=== PATIENT | male | born 1955 | race Caucasian/White ===

== ENCOUNTER 2016-09-06 17:20 | Inpatient (IN) ==
[2016-09-06] MEDS ORDERED: Ondansetron 4 MG/2 ML VIAL IVP PRN (21:08)
[2016-09-06] MEDS ORDERED: 0.9 % Sodium Chloride 1,000 ML IVC SCH ×2 (21:15→22:14)
[2016-09-06] MEDS ORDERED: *HR* Morphine 2 MG/ML SYRINGE IVP PRN (21:20)
[2016-09-06] MEDS ORDERED: Naloxone 0.4 MG/ML INJ IVP PRN (21:20)
[2016-09-06] MEDS ORDERED: *HR* HYDROmorphone (PF) 1 MG/ML SYRINGE IVP PRN (21:37)
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
[2016-09-06 22:21] LABS: Basophils # 0.1 K/mcL (0.0-0.2); Basophils % 0.3 %; Eosinophils % 0.2 %; Hemoglobin 11.1 g/dL (12.9-16.9); Immature Granulocytes % 0.7 % (0-4); Lymphocytes # 0.6 K/mcL (0.6-4.6); Mean Corpuscular Hemoglobin 22.3 pg (28.0-33.3); Mean Corpuscular Volume 74.4 fL (83.0-100.0); Mean Platelet Volume 9.2 fL (9.4-12.4); Monocytes # 1.2 K/mcL (0.0-1.3); Monocytes % 6.3 %; Neutrophils # 17.1 K/mcL (1.6-8.9); Platelet Count 329 K/mcL (140-400); Red Blood Count 4.97 M/mcL (4.19-5.50); Segmented Neutrophils % 89.5 %
[2016-09-06 22:26] LABS: INR 1.2; Prothrombin Time 13.4 Seconds (9.4-12.1)
[2016-09-06 22:29] LABS: Activated Partial Thrombo Time 31.6 Seconds (26.0-36.0)
[2016-09-06] MEDS: *HR* Enoxaparin 30 MG/0.3 ML SYRINGE SQ SCH (22:33)
[2016-09-06 22:34] LABS: BUN/Creatinine Ratio 21 (6-26); Blood Urea Nitrogen 17 mg/dL (8-26); Calcium 8.9 mg/dL (8.6-10.8); Carbon Dioxide 22 mEq/L (19-29); Chloride 106 mEq/L (98-109); Glucose 150 mg/dL (70-99); Osmolality,Calculated 296 (280-300); Potassium 4.1 mEq/L (3.5-4.5); Sodium 141 mEq/L (136-145); eGFR For African Americans > 60 (> 60); eGFR For Non-African Americans > 60 (> 60)
[2016-09-06] MEDS ORDERED: *HR* Dextrose 50 % in Water (Syg) 50 ML SYRINGE IVP PRN (22:41)
[2016-09-06] MEDS ORDERED: D5% in Water 1,000 ML IVC PRN (22:41)
[2016-09-06] MEDS ORDERED: Dextrose Gel 15 GM PO PRN ×2 (22:41)
[2016-09-07 00:48] LABS: Bilirubin,Urine Small (Negative); Blood,Urine Large (Negative); Clarity,Urine Cloudy (Clear); Color,Urine Dark Yellow (Yellow); Glucose,Urine (UA) Normal (Normal); Ketones,Urine 40 mg/dL (Negative); Leukocyte Esterase,Urine Small (Negative); Nitrite,Urine Negative (Negative); Protein,Urine 100 mg/dL (Neg-Trace); Specific Gravity,Urine 1.023 (1.010-1.025); Urobilinogen,Urine Normal (Normal)
[2016-09-07 00:49] LABS: Bacteria,Urine None Seen per hpf (None-Few); Hyaline Casts,Urine None Seen per lpf (None-Few); RBC,Urine TNTC per hpf (0-3); Squamous Epithelial Cell,Urine Moderate per lpf (None-Few); WBC,Urine 30-50 per hpf (0-3)
[2016-09-07] MEDS ORDERED: Levofloxacin 750 MG/150 ML 750 MG/150 ML BAG IVPB SCH (01:14)
[2016-09-07] MEDS: *HR* HYDROmorphone (PF) 1 MG/ML SYRINGE IVP PRN ×6 (01:19→13:04)
[2016-09-07] MEDS ORDERED: 0.9 % Sodium Chloride 1,000 ML IVC SCH ×2 (01:22→20:22)
[2016-09-07] MEDS: Insulin LISPRO 300 UNITS/3 ML VIAL SQ SCH ×4 (01:24→18:00)
[2016-09-07 01:46] LABS: Basophils # 0.1 K/mcL (0.0-0.2); Basophils % 0.4 %; Eosinophils % 0.1 %; Hematocrit 36.4 % (37.5-50.1); Hemoglobin 10.8 g/dL (12.9-16.9); Immature Granulocytes % 0.7 % (0-4); Immature Platelets 3.7 % (1.1-6.1); Lymphocytes # 0.7 K/mcL (0.6-4.6); Lymphocytes % 3.1 %; Mean Corpuscular HGB Conc 29.7 g/dL (31.6-35.5); Mean Corpuscular Hemoglobin 22.2 pg (28.0-33.3); Mean Corpuscular Volume 74.9 fL (83.0-100.0); Mean Platelet Volume 9.7 fL (9.4-12.4); Monocytes # 0.9 K/mcL (0.0-1.3); Neutrophils # 20.6 K/mcL (1.6-8.9); Platelet Count 353 K/mcL (140-400); Red Blood Count 4.86 M/mcL (4.19-5.50); Red Cell Distribution Width 19.9 % (11.5-14.5); Segmented Neutrophils % 91.7 %
[2016-09-07] MEDS: *HR* Enoxaparin 30 MG/0.3 ML SYRINGE SQ SCH ×2 (05:42→18:00)
[2016-09-07] MEDS ORDERED: Aspirin 325 MG TABLET PO ONE (06:38)
[2016-09-07] MEDS ORDERED: rOPINIRole 1 MG TABLET PO PRN ×3 (06:39→20:22)
[2016-09-07 07:04] LABS: BUN/Creatinine Ratio 19 (6-26); Blood Urea Nitrogen 16 mg/dL (8-26); Calcium 8.9 mg/dL (8.6-10.8); Carbon Dioxide 22 mEq/L (19-29); Chloride 105 mEq/L (98-109); Cholesterol 99 mg/dL (< 200); Glucose 143 mg/dL (70-99); HDL Cholesterol 33 mg/dL (40-59); LDL Cholesterol,Calculated 54 mg/dL (0-99); Magnesium 1.4 mg/dL (1.6-2.6); Osmolality,Calculated 292 (280-300); Sodium 139 mEq/L (136-145); Triglycerides 61 mg/dL (< 150); eGFR For African Americans > 60 (> 60); eGFR For Non-African Americans > 60 (> 60)
[2016-09-07 07:30] LABS: C-Reactive Protein 61 mg/L (Less than 5)
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
[2016-09-07] MEDS ORDERED: Magnesium Sulfate 2 GM in D5% in Water 100 ML IVPB ONE (08:51)
--- NOTE | 2016-09-07 08:59 | Pulmonology Consult Note ---
Date of Encounter: 09/07/16 Time of Encounter: 08:35 Assessment and Plan (1) Preop pulmonary/respiratory exam Current Visit: Yes Status: Acute This is a pleasant 61-year-old male with history of COPD over unknown stage, however I suspect from clinical exam as well as the fact he is on home oxygen at least would be severe stage, but he did not have any COPD exacerbation recently and he has not been hospitalized with fracture left femur that needs to be surgically treated. He had surgeries in the past without complications, however looks likely has community-acquired pneumonia and I feel from a pulmonary standpoint benefit of the surgery outweighed the risks and explained to the patient and also orthopedic team. I would recommend to continue current bronchodilators as well as systemic steroids perioperatively only with antibiotic. I have explained to the patient some of the risks of surgery such as respiratory failure, worsening His pneumonia, hypoxia, and even prolonged mechanical ventilation. If possible regional anesthesia with the less risky than general anesthesia and duration of the surgery less than 3 hours. Postoperatively he will need incentive spirometry and continue bronchodilators with antibiotic. Thank you very much for the consultation and we will follow up postoperatively. (2) Pneumonia Current Visit: Yes Status: Acute This is most likely community-acquired pneumonia patient already has been on antibiotics and I feel Levaquin should be enough with follow up on sputum culture and also check urine for urine strep antigen. Qualifiers: Pneumonia type: due to unspecified organism Laterality: right Lung location: unspecified part of lung Qualified Code(s): J18.9 - Pneumonia, unspecified organism (3) COPD (chronic obstructive pulmonary disease) Current Visit: No Status: Chronic There is no evidence of any exacerbation continue current treatment. He will need outpatient pulmonary function test. Qualifiers: COPD type: unspecified COPD Qualified Code(s): J44.9 - Chronic obstructive pulmonary disease, unspecified (4) Former smoker, stopped smoking many years ago Current Visit: Yes Status: Resolved History of Present Illness Consult date: 09/07/16 Requesting physician: Suzanna Crespo Reason for consult: COPD, other (Preoperative clearance) Chief complaint: Left femur fracture History of present illness: This is very pleasant 61-year-old male with history of COPD on home oxygen and he stated he used it only occasionally and he is COPD stage is unknown. Patient had femur fracture and orthopedic consult pulmonary for perioperative clearance for surgery. Patient denies any previous problems with surgeries. He denies any recent COPD exacerbation and recently he had symptoms of cold like , however on his chest x-ray there is evidence of pneumonia. Patient has some wheezing and sputum production. Patient to use inhalers at home but he does not remember the name. He denies using his rescue treatment a lot. Patient generally is active and he is a former smoker. He denies any hemoptysis and denies any chest pain. He has pain and discomfort at the site of his fracture. He denies any night sweats or significant fever. He has not been on systemic steroids recently and no hospitalizations. Past Med Surg Social Fam HX - Past Medical History Medical history: CHF, COPD, coronary artery disease, hypertension, malignancy, migraine, myocardial infarction, peripheral artery disease Psychiatric history: anxiety, depression - Past Surgical History Surgical History: bariatric surgery, knee replacement, other - Social History Smoking Status: Unknown if ever smoked Smokeless Tobacco Status: No Alcohol use: none Drug use: none - Family History Brother Hx Family Cancer: Yes Father Hx Family Cancer: Yes Medications and Allergies Albuterol Sulfate [Albuterol Inhaler] 2 puff IH Q4HR PRN 12/27/14 [History] Biotin 500 mcg PO DAILY 12/27/14 [History] Calcium Carbonate [Calcium] 1,500 mg PO DAILY 12/27/14 [History] Cyanocobalamin (Vitamin B-12) [Vitamin B-12] 1 tab PO DAILY 12/27/14 [History] Ginseng 1 tab PO DAILY 12/27/14 [History] Multivitamin [Multivitamins] 1 tab PO DAILY 12/27/14 [History] Pregabalin [Lyrica] 200 mg PO BID 12/27/14 [History] TraZODone 50 - 100 mg PO HS PRN 12/27/14 [History] Zolpidem Tartrate [Ambien] 10 mg PO HS 12/27/14 [History] Morphine Sulfate [Ms Contin] 15 mg PO Q8H 01/21/15 [History] Cyanocobalamin (B-12) [Vitamin B12] 1,000 mcg IM QMONTH 03/28/16 [History] Ciprofloxacin HCl [Cipro] 500 mg PO BID 09/07/16 [History] HYDROcodone/Acet 10/325 mg [[place] 10-325 mg] 1 tab PO Q6HR PRN 09/07/16 [History ] Lidocaine [Lidocare] 1 - 3 patch TP Q12H PRN 09/07/16 [History] Sumatriptan [Imitrex] 20 mg NS AD PRN 09/07/16 [History] Allergies pioglitazone [From Actos] Allergy (Unknown, Verified 12/27/14 07:43) UNKNOWN Amoxicillin [From Augmentin] Adverse Reaction (Mild, Verified 12/27/14 07:43) Nausea clavulanic acid [From Augmentin] Adverse Reaction (Mild, Verified 12/27/14 07:43 ) Nausea codeine Adverse Reaction (Mild, Verified 12/27/14 07:43) Hallucinating unknown reaction All Systems: A 10-system review of systems was performed and is negative for pertinent findings except as documented above in the HPI. Physical Examination Vital Signs: Vital Signs, Last 4 Hours Temp Pulse Resp BP Pulse Ox 09/07/16 07:01 98.2 F 99 18 154/79 95 09/07/16 05:14 98.5 F 97 16 142/72 96 General appearance: no acute distress Eyes: nonicteric ENT: oropharynx moist Neck: supple, no lymphadenopathy Effort: normal Inspection: hyperextended Auscultation: left: diminished breath sounds, right: rhonchi Percussion: bilateral: not dull Cardiovascular: regular rate and rhythm Gastrointestinal: normoactive bowel sounds, non-distended Extremities: no cyanosis, no edema Musculoskeletal: other (Left knee is tender) normal mental status, non-focal exam mood appropriate Results - Laboratory Findings CBC and BMP: 09/07/16 01:38 09/07/16 01:38 PT/INR, D-dimer PT 13.4 Seconds (9.4-12.1) H 09/06/16 22:13 Abnormal lab findings: Abnormal lab results WBC 22.5 K/mcL (4.3-11.1) H 09/07/16 01:38 Hgb 10.8 g/dL (12.9-16.9) L 09/07/16 01:38 Hct 36.4 % (37.5-50.1) L 09/07/16 01:38 MCV 74.9 fL (83.0-100.0) L 09/07/16 01:38 MCH 22.2 pg (28.0-33.3) L 09/07/16 01:38 MCHC 29.7 g/dL (31.6-35.5) L 09/07/16 01:38 RDW 19.9 % (11.5-14.5) H 09/07/16 01:38 Neutrophils # 20.6 K/mcL (1.6-8.9) H 09/07/16 01:38 PT 13.4 Seconds (9.4-12.1) H 09/06/16 22:13 Glucose 143 mg/dL (70-99) H 09/07/16 01:38 POC Glucose 140 (58-89) H 09/07/16 05:05 Magnesium 1.4 mg/dL (1.6-2.6) L 09/07/16 01:38 Troponin I 0.07 ng/mL (0-0.03) H* 09/07/16 01:38 C-Reactive Protein 61 mg/L (Less than 5) H 09/07/16 01:38 HDL Cholesterol 33 mg/dL (40-59) L 09/07/16 01:38 Urine Clarity Cloudy (Clear) A 09/07/16 00:30 Urine Protein 100 mg/dL (Neg-Trace) H 09/07/16 00:30 Urine Ketones 40 mg/dL (Negative) H 09/07/16 00:30 Urine Blood Large (Negative) H 09/07/16 00:30 Urine Bilirubin Small (Negative) H 09/07/16 00:30 Ur Leukocyte Esterase Small (Negative) H 09/07/16 00:30 Urine Microscopic RBC TNTC per hpf (0-3) H 09/07/16 00:30 Urine Microscopic WBC 30-50 per hpf (0-3) H 09/07/16 00:30 Ur Squamous Epith Cells Moderate per lpf (None-Few) H 09/07/16 00:30 Ur Culture Indicated? YES (NO) A 09/07/16 00:30 - Diagnostic Findings CT scan - chest: report reviewed, image reviewed - Clinical Findings Intake & Output: Intake & Output 09/06/16 09/07/16 09/07/16 23:59 07:59 15:59 Intake Total 0 / 0 200 / 200 Output Total 300 / 300 550 / 550 Balance -300 / -300 -350 / -350 Weight 83.461 kg 83.461 kg Consult Discharge Plan - Plan Referrals: Darrin Cobos, DESKTOP SPECIALIST [Primary Care Provider] -
[2016-09-07] MEDS ORDERED: BIOTIN 500 MCG PO SCH (09:00)
[2016-09-07] MEDS ORDERED: Metoprolol XL (24 HR) Succ 25 MG TAB.ER.24H PO SCH (09:00)
[2016-09-07] MEDS ORDERED: Vancomycin 1,250 MG in D5% in Water 250 ML IVPB SCH ×2 (09:00→23:00)
[2016-09-07] MEDS ORDERED: Tiotropium 18 MCG inhalation IH SCH (09:00)
[2016-09-07] MEDS ORDERED: Cyanocobalamin (B-12) 1,000 MCG/ML VIAL IM SCH ×2 (09:00)
[2016-09-07] MEDS ORDERED: Multivit/Ca/Min/Fe/FA 1 TAB TABLET PO SCH (09:00)
[2016-09-07] MEDS ORDERED: Pregabalin 50 MG CAPSULE PO SCH (09:00)
[2016-09-07] MEDS ORDERED: Cyanocobalamin (B-12) 1,000 MCG TABLET PO SCH (09:00)
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
[2016-09-07] MEDS ORDERED: Vancomycin 1,750 MG in D5% in Water 500 ML IVPB ONE (10:25)
--- NOTE | 2016-09-07 12:09 | Anesthesia Evaluation PreOp ---
Date of Encounter: 09/07/16 Time of Encounter: 12:06 - Past History Planned Operation: Left Distal Femoral Component Replacement Cardiac History: [place], CHF, HTN, Other (elevated troponin- Cardiology consult, likely demand ischemia) Pulmonary History: Former smoker (quit 12 years ago, smoked for 33 years), COPD (on O2 prn), Other (pneumonia) [employer] History: Other (Marfan's, chronic back pain) Other Medical History: Other (pancreatic CA S/P Whipple, anxiety/depression) Anesthesia History: No Prior Anesthetic Complications, Past Anesthesia Alcohol Use: none Drug use: none Medications and Allergies Albuterol Sulfate [Albuterol Inhaler] 2 puff IH Q4HR PRN 12/27/14 [History] Biotin 500 mcg PO DAILY 12/27/14 [History] Calcium Carbonate [Calcium] 1,500 mg PO DAILY 12/27/14 [History] Cyanocobalamin (Vitamin B-12) [Vitamin B-12] 1 tab PO DAILY 12/27/14 [History] Ginseng 1 tab PO DAILY 12/27/14 [History] Multivitamin [Multivitamins] 1 tab PO DAILY 12/27/14 [History] Pregabalin [Lyrica] 200 mg PO BID 12/27/14 [History] TraZODone 50 - 100 mg PO HS PRN 12/27/14 [History] Zolpidem Tartrate [Ambien] 10 mg PO HS 12/27/14 [History] Morphine Sulfate [Ms Contin] 15 mg PO Q8H 01/21/15 [History] Cyanocobalamin (B-12) [Vitamin B12] 1,000 mcg IM QMONTH 03/28/16 [History] Ciprofloxacin HCl [Cipro] 500 mg PO BID 09/07/16 [History] HYDROcodone/Acet 10/325 mg [[place] 10-325 mg] 1 tab PO Q6HR PRN 09/07/16 [History ] Lidocaine [Lidocare] 1 - 3 patch TP Q12H PRN 09/07/16 [History] Sumatriptan [Imitrex] 20 mg NS AD PRN 09/07/16 [History] Allergies pioglitazone [From Actos] Allergy (Unknown, Verified 12/27/14 07:43) UNKNOWN Amoxicillin [From Augmentin] Adverse Reaction (Mild, Verified 12/27/14 07:43) Nausea clavulanic acid [From Augmentin] Adverse Reaction (Mild, Verified 12/27/14 07:43 ) Nausea codeine Adverse Reaction (Mild, Verified 12/27/14 07:43) Hallucinating unknown reaction - Meds/Allergy Pre-op Review Medications Reviewed: Yes Allergies Reviewed: Yes Beta Blockers on Current Med List: Yes If Beta Blockers taken, Date/Time (Last Dose taken): 09/07/2016 at 1053 Anesthesia Results - Labs 09/07/16 01:38 09/07/16 01:38 Laboratory Tests 09/06/16 22:13 PT 13.4 H INR 1.2 APTT 31.6 - Imaging EKG: report reviewed (09/06/2016 ST, moderate ST depression) Chest x-ray: report reviewed (Large area of consolidation in the right mid lung zone, which could represent pneumonia in the proper clinical setting.) Additional studies: 09/07/2016 Echo LVEF 55% normal LV chamber size, wall thickness and function mild LV diastolic dysfunction atypical septal motion of unclear etiology normal RV structure and function no evidence of pulmonary HTN no significant valvular dysfunction 12/08/2014 Echo Impressions: Technically sub-optimal due to limited echocardiographic windows. Mildly dilated left ventricle. Mild left ventricular systolic dysfunction, LVEF 45-50%. There is mild global hypokinesis. Moderate left ventricular diastolic dysfunction. Mildly dilated right ventricle with normal systolic function. Moderately dilated left atrium. No significant valvular dysfunction. Unable to estimate RVSP due to inadequate TR jet. Aortic root was not well visualized. Grossly appears normal in size. Anesthesia Exam Vital Signs/O2 Sat/Glucose, Most Recent Temp Pulse Resp BP Pulse Ox 98.0 F 98 18 147/81 95 09/07/16 11:11 09/07/16 11:11 09/07/16 11:11 09/07/16 11:11 09/07/16 11:11 Blood Glucose* 120 Height: 5'9''/1.75 m Weight: 184 lbs/83.461 kg NPO (# of Hours): 8 Pain Scale: 10 Pain Scale Used: Numeric (1 - 10) - HEENT Pupil (Motor): EOMI Mallampati: II Teeth: Normal, Missing Oral Opening: Greater than 3 - [employer] LOC: Oriented [employer] Motor: Normal RUE, Normal LUE, Normal RLE, Normal Face, Deficit LLE [employer] Sensory: Normal: RUE, LUE, RLE, LLE, Face - Cardiac Rhythm: Regular Murmur: None - Pulmonary Breath Sounds: bilateral Clear Respiratory Effort: Symmetrical Anesthesia Assess/Plan ASA Score: 4 Modified [place] Scale for Level of Consciousness: Cooperative, oriented, and tranquil Anesthetic Plan: General, Regional (femoral nerve block), Precautions (Patient understands that he is at increased risk for perioperative complications including myocardial infarct, arrhythmias, CVA, post op vent support/ICU stay, and . Patient wishes to proceed.) Monitoring Plan: Standard Monitors
--- NOTE | 2016-09-07 12:41 | Electrocardiograph Report ---
[place] [id number] Test Date: 2016-09-06 Pat Name: Eduar Hooper Department: 115 Room: 3A Gender: M Delivery Person: [id number] : 1955 Requested By: Mer Starr Order Number: [id number] Reading MD: Yoly Christie Measurements Intervals [place] Rate: 122 P: 79 MS: 128 QRS: 77 QRSD: 92 T: 72 QT: 315 QTc: 387 Interpretive Statements SINUS TACHYCARDIA ABNORMAL RHYTHM ECG Electronically Signed On 09-07-2016 12:40:01 EDT by Yoly Christie
--- NOTE | 2016-09-07 13:07 | ECHO - Doppler Report ---
Echocardiogram Name: Eduar Hooper Date of Study: 09/07/2016 Date: 1955 Ht: 69.0 in Medical Record#: [id number] Age: 61 Wt: 184.0 lb Gender: Male BSA: 1.99 Order #: [id number] Location: [facility] Room #: 3A55 Reading Physician: Charlie Cummings DO, [facility], JELENA Automatic Equipment Technician: Satinder Saenz RDCS Ordering Physician: Macario Jay MD, [facility] Primary Physician: Darrin Cobos CNP Indications: Preoperative exam, Shortness of breath, Elevated troponin Impressions: LVEF 55%. Normal LV chamber size, wall thickness and function. Mild left ventricular diastolic dysfunction. Atypical septal motion of unclear etiology. Normal right ventricular structure and function. No evidence of pulmonary hypertension. No significant valvular dysfunction. Left Ventricular Wall Motion: Rest Echo Findings All wall segments showed normal motion. Findings: Study Quality * Technically sub-optimal due to clinical status. ECG Findings * Normal sinus rhythm. Left Ventricle * LVEF 55%. * Normal LV chamber size, wall thickness and function. * Mild left ventricular diastolic dysfunction. * Atypical septal motion of unclear etiology. Right Ventricle * Normal right ventricular structure and function. Left Atrium * Mildly dilated left atrium. Right Atrium * Normal right atrial size. Interatrial Septum * No evidence of PFO by color Doppler. Aortic Valve * Trileaflet aortic valve with normal function. * No aortic regurgitation. * No aortic stenosis. Mitral Valve * Normal mitral valve structure and function. * No mitral regurgitation. * No mitral stenosis. Tricuspid Valve * Normal tricuspid valve structure and function. * Trace tricuspid regurgitation. * No evidence of pulmonary hypertension. Pulmonic Valve * Normal pulmonic valve structure and function. * No pulmonic regurgitation. Aorta * Normally sized aortic root. Pericardium * The pericardium appears normal. IVC * Normal IVC dimensions and inspiratory collapse. Pulmonary Artery * Normal visualized portions of the main pulmonary artery. History 12/08/14 a Previous Echo was performed. Measurements: BP: 147/ 81 2D Normal Values RVIDd: 3.73 cm <2.7 cm IVSd: 1.05 cm 0.6 - 1.0 cm LVIDd: 5.50 cm 3.7 - 5.6 cm LVPWd: 1.17 cm 0.6 - 1.1 cm LVIDs: 4.53 cm 1.5 - 3.6 cm AO: 2.70 cm < 4.0 cm LA: 2.70 cm 2.0 - 4.0cm %FS: 23.60 cm >25 % LA volume: 74 Mitral Valve Peak E:.55 m/sec Peak A:.55 m/sec E/A Ratio:1 Peak E' Lat Xavier:7.29 cm/s Peak E' Med Xavier:9.25 cm/s E/E' Lat Ratio:7.6 E/E' Med Ratio:6 Tricuspid Valve TV Regurg Peak Grad: 20.00mmHg TV Regurg Peak Xavier: 2.21m/sec Updated by Charlie Cummings DO, FACRochelle, JELENA, STACY on 09/07/2016 1:01:54 PM electronically signed on 09/07/2016 1:02:53 PM with status of Final Wall Motion Conner: 1=Normal, 2=Hypokinesis, 3=Akinesis, 4=Dyskinesis, 5=Aneurysmal, 6=Hyperkinetic, X=Not Visualized (Blank)=Missing
[2016-09-07] MEDS ORDERED: *HR* FentaNYL (PF) 100 MCG/2 ML VIAL ONE ×2 (15:10→16:37)
[2016-09-07] MEDS ORDERED: *HR* Propofol 200 MG/20 ML VIAL IVP ONE (15:11)
[2016-09-07] MEDS ORDERED: *HR* Midazolam HCl 2 MG/2 ML VIAL ONE (15:11)
[2016-09-07] MEDS ORDERED: Lidocaine -MPF 2% 2 ML VIAL ONE (15:11)
[2016-09-07] MEDS ORDERED: ROPIVACAINE HCL/PF 0.5% 30 ML VIAL ONE (15:23)
--- NOTE | 2016-09-07 15:55 | Anesthesia Procedures ---
Date of Encounter: 09/07/16 Time of Encounter: 15:50 Procedures: Anesthesia - Nerve Block Procedure Date: 09/07/16 Time: 15:50 Allergies/Adv Reactions: Allergies Allergy/AdvReac Type Severity Reaction Status Date / Time pioglitazone [From Actos] Allergy Unknown UNKNOWN Verified 12/27/14 07:43 Amoxicillin [From Augmentin] AdvReac Mild Nausea Verified 12/27/14 07:43 clavulanic acid AdvReac Mild Nausea Verified 12/27/14 07:43 [From Augmentin] codeine AdvReac Mild Hallucinati Verified 12/27/14 07:43 ng Pre-op Diagnosis: Left distal femur fracture Surgical Procedure: Left distal femur replacement Checklist: Correct Patient Identifier, Correct procedure, History checked Correct side: Left Blood Thinner: No Monitor Applied: EKG, BP, Pulse Oximetry Supplemental Oxygen via Nasal Cannula (L/min): 4 Sedation: Versed (mg): 2 Sedation: Fentanyl (mcg): 100 Indication: Post Op Analgesia Pre-op Neuro Deficits: No Block Type: Femoral Catheter placed: No Sterile Technique: Yes Ultrasound used: Yes Anatomy identified: Yes Visual spread of Local: Yes Blood on Needle Aspiration: No Smooth Injection of Local: Yes Pain with Injection of Local: No Prep: Chlorhexadine Needle: 22 x 50 mm Stimuplex Local: Ropivacaine (0.5%) Volume (cc): 30 Number of Attempts: 1 Complications: None/effective block Vitals: VSS throughout procedure. See nursing documentation. Comments: Patient tolerated well. Verbal order Dr Child for post op pain management.
[2016-09-07 16:14] LABS: Adenovirus Not Detected (Not Detect); Bordetella Pertussis Not Detected (Not Detect); Chlamydophila pneumoniae Not Detected (Not Detect); Coronavirus 229E Not Detected (Not Detect); Coronavirus HKU1 Not Detected (Not Detect); Coronavirus NL63 Not Detected (Not Detect); Coronavirus OC43 Not Detected (Not Detect); Human Metapneumovirus Not Detected (Not Detect); Human Rhinovirus/Enterovirus ***DETECTED*** (Not Detect); Influenza A Subtype 2009 H1 Not Detected (Not Detect); Influenza A Untypeable Not Detected (Not Detect); Influenza B Not Detected (Not Detect); Mycoplasma pneumoniae Not Detected (Not Detect); Parainfluenza Virus 1 Not Detected (Not Detect); Parainfluenza Virus 2 Not Detected (Not Detect); Parainfluenza Virus 3 Not Detected (Not Detect); Parainfluenza Virus 4 Not Detected (Not Detect); Respiratory Syncytial Virus Not Detected (Not Detect)
[2016-09-07] MEDS ORDERED: ceFAZolin 1,000 MG in D5% in Water (Mini-Bag+) 100 ML IVPB ONE (16:23)
[2016-09-07] MEDS ORDERED: *HR* HYDROmorphone 2 MG/ML SYRINGE ONE (16:31)
[2016-09-07] MEDS ORDERED: Dexamethasone 4 MG/ML VIAL ONE (16:36)
--- NOTE | 2016-09-07 16:36 | Internal Med Progress Note ---
Date of Encounter: 09/07/16 Time of Encounter: 16:34 - Assessment and plan (1) Closed left femoral fracture Current Visit: Yes Status: Acute Assessment and plan: or as per ortho. Qualifiers: Encounter type: initial encounter Femur location: distal Fracture morphology: unspecified fracture morphology Qualified Code(s): S72.402A - Unspecified fracture of lower end of left femur, initial encounter for closed fracture (2) DVT prophylaxis Current Visit: Yes Status: Acute Assessment and plan: as per hospital protocol. (3) Pneumonia Current Visit: Yes Status: Acute Assessment and plan: leukocytosis, x ray noted, continue with iv levaquin, follow cultures. Qualifiers: Pneumonia type: due to unspecified organism Laterality: right Lung location: unspecified part of lung Qualified Code(s): J18.9 - Pneumonia, unspecified organism (4) UTI (urinary tract infection) Current Visit: Yes Status: Suspected Assessment and plan: history of uti, sensitive to vancomycin according to prior cultures, will give vancomycin and adjust therapy based on cultures.monitor vanc levels. avoid nephrotoxic agents. Qualifiers: Urinary tract infection type: site unspecified Hematuria presence: without hematuria Qualified Code(s): N39.0 - Urinary tract infection, site not specified (5) Elevated troponin Current Visit: Yes Status: Acute Assessment and plan: evaluated by cardiology, echo noted, no interventions. - Subjective Interval history: 1st encounter with the patient. complaining of productive cough, had fever prior to arrival. former smoker, alert and oriented. - Constitutional Vitals: Temp Pulse Resp BP Pulse Ox 98.0 F 98 18 147/81 95 09/07/16 11:11 09/07/16 11:11 09/07/16 11:11 09/07/16 11:11 09/07/16 11:11 General appearance: Present: A&O X 2 - Head Head exam: Present: atraumatic, normocephalic - Eye Eye exam: Present: PERRL, conjuntiva pink, sclera anicteric Pupils: Present: PERRL - Neck Neck exam general surgery: Present: supple, trachea midline. Absent: lymphadenopathy - Respiratory Respiratory exam: Present: decreased breath sounds, rhonchi. Absent: accessory muscle use, rales, wheezes - Cardiovascular Cardiovascular exam: Present: RRR, +S1, +S2. Absent: diastolic murmur, gallop, rubs, systolic murmur - GI/Abdominal GI/Abdominal exam: Present: normal bowel sounds, soft, no peritoneal signs. Absent: distended, tenderness - Extremities Exam Extremities exam: Present: warm, radial pulses palpable and symetrical. Absent : calf tenderness, cyanotic, pedal edema - Neurological Exam Neurological exam: Present: CN II-XII intact, oriented X3, no focal deficits. Absent: pronater drift, facial droop, speech deficit - Skin Skin exam: Present: dry, intact Internal Medicine: Result - Labs CBC & Chem 7: 09/07/16 01:38 09/07/16 01:38 Labs: Short CBC 09/06/16 09/07/16 Range/Units 22:13 01:38 WBC 19.0 H 22.5 H (4.3-11.1) K/mcL Hgb 11.1 L 10.8 L (12.9-16.9) g/dL Hct 37.0 L 36.4 L (37.5-50.1) % Plt Count 329 353 (140-400) K/mcL Neutrophils # 17.1 H 20.6 H (1.6-8.9) K/mcL BMP 09/06/16 09/07/16 22:13 01:38 Sodium 141 139 Potassium 4.1 4.0 Chloride 106 105 Carbon Dioxide 22 22 BUN 17 16 Creatinine 0.82 0.83 Glucose 150 H 143 H Calcium 8.9 8.9 Cardiac Enzymes 09/06/16 09/07/16 Range/Units 22:13 01:38 Troponin I 0.04 H* 0.07 H* (0-0.03) ng/mL Urine 09/07/16 Range/Units 00:30 Urine Color Dark Yellow (Yellow) Urine Clarity Cloudy A (Clear) Urine pH 6.0 (5.0-8.0) pH Units Ur Specific [place] 1.023 (1.010-1.025) Urine Protein 100 H (Neg-Trace) mg/dL Urine Glucose (UA) Normal (Normal) mg/dL - ABG Interpretation ABG results: PT/INR, D-dimer PT 13.4 Seconds (9.4-12.1) H 09/06/16 22:13 - Impressions Impressions Chest X-Ray 09/07/16 00:04 IMPRESSION: Large area of consolidation in the right mid lung zone, which could represent pneumonia in the proper clinical setting. However close radiologic follow-up is recommended to ensure resolution. D/ / Claude De Los Santos MD / Claude De Los Santos MD Interpreting Provider: Claude De Los Santos MD Knee CT 09/07/16 06:44 IMPRESSION: 1. Acute traumatic periprosthetic distal femur fracture. D/ / 09/07/2016 08:37:20 Johnson Villa MD / soha Interpreting Provider: Johnson Villa MD Consult Discharge Plan - Plan Referrals: Darrin Cobos, RECORD RETRIEVAL SPECIALIST [Primary Care Provider] -
[2016-09-07] MEDS ORDERED: *HR* Labetalol 100 MG/20 ML MDV IVP PRN (17:07)
[2016-09-07] MEDS ORDERED: Ondansetron 4 MG/2 ML VIAL IVP ONE (17:07)
[2016-09-07] MEDS ORDERED: *HR* HYDROmorphone (PF) 1 MG/ML SYRINGE IVP PRN (17:07)
[2016-09-07] MEDS ORDERED: Dexamethasone 4 MG/ML VIAL IVP ONE (17:07)
--- NOTE | 2016-09-07 17:21 | Electrocardiograph Report ---
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
--- NOTE | 2016-09-07 17:35 | Orthopedic Operative Note ---
Date of procedure: 09/07/16 Pre-op diagnosis: Displaced comminuted periprosthetic left distal femur fracture Post-op diagnosis: same Procedure: Procedure: Revision total knee replacement to distal femoral replacement left Estimated blood loss: 1000 mL Hardware: Biomet distal femoral replacement 7 femur 3 cm segment 19.5 150 stem, 71x 160 tibia 16mm Alejandra Auxiliary components tibial bushing axle femoral bushings lock pin Findings: Severely comminuted distal femoral fracture exiting around the distal femoral replacement. Dictation of procedure: Patient brought to the operating placed on the operating table after general anesthesia was administered the left lower extremity was prepped and draped in the sterile surgical fashion the patient received IV antibiotics prior to incision. A longitudinal incision was made incorporating the old incision centered over the patella. The incision was made through the skin and subcutaneous tissue hemostasis was obtained with Bovie cautery. Using careful sharp dissection the extensor mechanism was identified. A medial parapatellar approach was performed. The Alejandra was removed. Patient had extensive comminution with multiple large fragments. The distal femoral component with the attached bone was carefully dissected free from its soft tissue structures and removed. The tibial component was removed utilizing an osteotome and oscillating saw and then malleted out. The tibial component was removed without significant bone loss. The tibia was prepared first was reamed for 160 stem stem. The tibia was sized to a 71 This was a monoblock construct had good fit and fixation. Attention was then turned to the femur. The femoral shaft was transected to get a fresh bony cut. A cut that was even as well. The femur was reamed up to a size 20 x 150 A 19 trial stem was impacted in place and the segment was dialed to 3 cm segment With the 16 mm trial Alejandra elected. Full flexion full extension no instability, good patella tracking. All trial components were removed. The knee sat for 2 minutes with a Betadine saline solution while components were assembled on the back table. The monoblock tibia cemented first and impacted in place. The femoral component once assembled was impacted in place in the appropriate orientation. The tibial bushing the femoral bushings were locked in place the axle was used to articulate the tibial and femoral components and this was secured with the locking pin. Knee was taken through a range of motion and excellent patella tracking. The wound was irrigated with pulse irrigation. The extensor mechanism was closed with a running #2 PDS suture. The deep tissue was irrigated and closed with #2 PDS suture superficially with 0 PDS suture skin was closed with skin nam. Patient placed in a sterile dressing postoperative brace extubated transferred to recovery room in stable condition. Anesthesia: COLBY Surgeon: Jacob Child Battery Installer: Faith Ng Condition: stable Disposition: PACU
[2016-09-07 17:46] LABS: Hematocrit 33.5 % (37.5-50.1)
[2016-09-07] MEDS ORDERED: Ringers Solution, Lactated 1,000 ML ONE (18:25)
[2016-09-07 18:41] LABS: Hematocrit 30.2 % (37.5-50.1); Hemoglobin 8.8 g/dL (12.9-16.9)
--- NOTE | 2016-09-07 18:53 | Anesthesia Evaluation Post Op ---
Date of Encounter: 09/07/16 Time of Encounter: 18:52 - Vital Signs Vital Signs: Vital Signs/O2 Sat, Most Current Temp Pulse Resp BP Pulse Ox 99.7 F H 93 18 118/67 93 09/07/16 18:48 09/07/16 18:48 09/07/16 18:48 09/07/16 18:48 09/07/16 18:48 - Lungs Lungs: Clear Ascult./Percussion - Airway Airway: Non-obstructed - Cardiovascular Regular Rate - Mental Status Mental Status: Alert & Oriented, Answers Appropriately - Pain Pain Scale: 3 Pain Scale used: Numeric (1 - 10) - Nausea Vomiting Nausea Vomiting: Not Present - Hydration Hydration: Ice chips, Mccracken catheter - Discharge PostOp Status: Transfer Patient to floor
[2016-09-07] MEDS ORDERED: *HR* OxyCODONE Immed Rel 5 MG TABLET PO PRN (20:22)
[2016-09-07] MEDS ORDERED: D5% in Water 1,000 ML IVC PRN (20:22)
[2016-09-07] MEDS ORDERED: Naloxone 0.4 MG/ML INJ IVP PRN (20:22)
[2016-09-07] MEDS ORDERED: Sennosides 8.6 MG TABLET PO PRN (20:22)
[2016-09-07] MEDS ORDERED: Dextrose Gel 15 GM PO PRN ×2 (20:22)
[2016-09-07] MEDS ORDERED: MOM Conc 10 ML UD.LIQ PO PRN (20:22)
[2016-09-07] MEDS ORDERED: Temazepam 15 MG CAPSULE PO PRN (20:22)
[2016-09-07] MEDS ORDERED: *HR* Dextrose 50 % in Water (Syg) 50 ML SYRINGE IVP PRN (20:22)
[2016-09-07] MEDS: *HR* HYDROmorphone 2 MG/ML SYRINGE IVP PRN (20:48)
[2016-09-07] MEDS ORDERED: traZODone 50 MG TABLET PO SCH (21:00)
[2016-09-07] MEDS: traZODone 50 MG TABLET PO SCH (21:42)
[2016-09-07] MEDS: Pregabalin 50 MG CAPSULE PO SCH (21:42)
[2016-09-07] MEDS: *HR* OxyCODONE Immed Rel 5 MG TABLET PO PRN (21:43)
[2016-09-08] MEDS ORDERED: Insulin LISPRO 300 UNITS/3 ML VIAL SQ SCH
[2016-09-08] MEDS ORDERED: Dextrose Gel 15 GM PO PRN (00:17)
[2016-09-08] MEDS ORDERED: D5% in Water 1,000 ML IVC PRN (00:17)
[2016-09-08] MEDS: Levofloxacin 750 MG/150 ML 750 MG/150 ML BAG IVPB SCH (00:34)
[2016-09-08] MEDS: Vancomycin 1,250 MG in D5% in Water 250 ML IVPB SCH ×2 (00:34→14:49)
[2016-09-08] MEDS: *HR* Morphine Sulfate SR (12 HR) 15 MG TABLET.ER PO SCH ×3 (00:35→16:17)
[2016-09-08] MEDS ORDERED: Levofloxacin 750 MG/150 ML 750 MG/150 ML BAG IVPB SCH (02:00)
[2016-09-08] MEDS: *HR* Enoxaparin 30 MG/0.3 ML SYRINGE SQ SCH ×2 (04:43→16:56)
[2016-09-08] MEDS: *HR* OxyCODONE Immed Rel 5 MG TABLET PO PRN ×4 (06:06→21:40)
[2016-09-08 06:51] LABS: Hematocrit 28.1 % (37.5-50.1); Hemoglobin 8.3 g/dL (12.9-16.9)
[2016-09-08] MEDS ORDERED: Furosemide 20 MG/2 ML VIAL IVP PRN (07:16)
[2016-09-08] MEDS ORDERED: 0.9 % Sodium Chloride 250 ML IVC SCH (07:30)
[2016-09-08] MEDS: Metoprolol XL (24 HR) Succ 25 MG TAB.ER.24H PO SCH (08:38)
[2016-09-08] MEDS: Multivit/Ca/Min/Fe/FA 1 TAB TABLET PO SCH (08:39)
[2016-09-08] MEDS: Pregabalin 50 MG CAPSULE PO SCH ×2 (08:39→21:40)
[2016-09-08] MEDS: Cyanocobalamin (B-12) 1,000 MCG TABLET PO SCH (08:39)
[2016-09-08] MEDS ORDERED: BIOTIN 500 MCG PO SCH (09:00)
[2016-09-08] MEDS ORDERED: Tiotropium 18 MCG inhalation IH SCH (09:00)
[2016-09-08 09:01] LABS: Basophils % 0.1 %; Hematocrit 27.9 % (37.5-50.1); Hemoglobin 8.3 g/dL (12.9-16.9); Immature Granulocytes % 0.8 % (0-4); Lymphocytes % 4.7 %; Mean Corpuscular HGB Conc 29.7 g/dL (31.6-35.5); Mean Corpuscular Hemoglobin 22.5 pg (28.0-33.3); Mean Corpuscular Volume 75.6 fL (83.0-100.0); Mean Platelet Volume 9.6 fL (9.4-12.4); Monocytes # 1.8 K/mcL (0.0-1.3); Monocytes % 8.4 %; Neutrophils # 18.5 K/mcL (1.6-8.9); Platelet Count 300 K/mcL (140-400); Red Blood Count 3.69 M/mcL (4.19-5.50); Red Cell Distribution Width 19.8 % (11.5-14.5)
[2016-09-08 09:15] LABS: Alanine Aminotransferase 12 Units/L (0-55); Albumin 2.2 g/dL (3.5-5.0); Albumin/Globulin Ratio 0.7 (1.1-2.2); Alkaline Phosphatase 70 Units/L (38-126); Aspartate Amino Transferase 12 Units/L (5-34); BUN/Creatinine Ratio 25 (6-26); Bilirubin,Total 0.2 mg/dL (0.2-1.2); Blood Urea Nitrogen 22 mg/dL (8-26); Calcium 8.2 mg/dL (8.6-10.8); Carbon Dioxide 30 mEq/L (19-29); Chloride 103 mEq/L (98-109); Globulin 3.2 g/dL (2.4-3.5); Glucose 142 mg/dL (70-99); Magnesium 1.6 mg/dL (1.6-2.6); Osmolality,Calculated 292 (280-300); Phosphorous 2.1 mg/dL (2.3-4.7); Potassium 4.4 mEq/L (3.5-4.5); Sodium 138 mEq/L (136-145); Total Protein 5.4 g/dL (6.0-8.3); eGFR For African Americans > 60 (> 60); eGFR For Non-African Americans > 60 (> 60)
[2016-09-08] MEDS: Insulin LISPRO 300 UNITS/3 ML VIAL SQ SCH ×4 (09:18→21:48)
--- NOTE | 2016-09-08 10:37 | Pulmonology Progress Note ---
Date of Encounter: 09/08/16 Time of Encounter: 09:45 Assessment and Plan (1) Preop pulmonary/respiratory exam Current Visit: Yes Status: Acute (2) Pneumonia Current Visit: Yes Status: Acute Continue current antibiotics and follow up on the cultures. Qualifiers: Pneumonia type: due to unspecified organism Laterality: right Lung location: unspecified part of lung Qualified Code(s): J18.9 - Pneumonia, unspecified organism (3) COPD (chronic obstructive pulmonary disease) Current Visit: No Status: Chronic Patient postoperatively and continue current bronchodilators as well as encouraged incentive spirometry. Thank you for the consultation and please call for any questions Qualifiers: COPD type: unspecified COPD Qualified Code(s): J44.9 - Chronic obstructive pulmonary disease, unspecified (4) Former smoker, stopped smoking many years ago Current Visit: Yes Status: Resolved Subjective Principal diagnosis: Fracture Femur Interval history: Patient had his surgery and was extubated not needing any invasive mechanical ventilation post operatively. He is coughing up more sputum now. Denies any wheezing and his breathing is stable. Objective PUL Vital signs: Last Vital Signs Temp 98.2 F 09/08/16 06:50 Pulse 91 09/08/16 06:50 Resp 16 09/08/16 08:08 BP 102/59 09/08/16 06:50 Pulse Ox 96 09/08/16 08:08 General appearance: no acute distress Eyes: nonicteric Neck: supple Effort: normal Auscultation: left: diminished breath sounds, right: rhonchi Percussion: bilateral: not dull Cardiovascular: regular rate and rhythm Gastrointestinal: normoactive bowel sounds, non-distended Extremities: no cyanosis, edema (Left side) Musculoskeletal: other (Left post surgery) normal mental status, non-focal exam mood appropriate Results - Laboratory Findings CBC and BMP: 09/08/16 08:52 09/08/16 08:52 PT/INR, D-dimer PT 13.4 Seconds (9.4-12.1) H 09/06/16 22:13 Abnormal lab findings: Abnormal lab results WBC 21.5 K/mcL (4.3-11.1) H 09/08/16 08:52 RBC 3.69 M/mcL (4.19-5.50) L 09/08/16 08:52 Hgb 8.3 g/dL (12.9-16.9) L 09/08/16 08:52 Hct 27.9 % (37.5-50.1) L 09/08/16 08:52 MCV 75.6 fL (83.0-100.0) L 09/08/16 08:52 MCH 22.5 pg (28.0-33.3) L 09/08/16 08:52 MCHC 29.7 g/dL (31.6-35.5) L 09/08/16 08:52 RDW 19.8 % (11.5-14.5) H 09/08/16 08:52 Neutrophils # 18.5 K/mcL (1.6-8.9) H 09/08/16 08:52 Monocytes # 1.8 K/mcL (0.0-1.3) H 09/08/16 08:52 PT 13.4 Seconds (9.4-12.1) H 09/06/16 22:13 Carbon Dioxide 30 mEq/L (19-29) H 09/08/16 08:52 Glucose 142 mg/dL (70-99) H 09/08/16 08:52 POC Glucose 154 (58-89) H 09/08/16 08:34 Calcium 8.2 mg/dL (8.6-10.8) L 09/08/16 08:52 Phosphorus 2.1 mg/dL (2.3-4.7) L 09/08/16 08:52 Troponin I 0.07 ng/mL (0-0.03) H* 09/07/16 01:38 C-Reactive Protein 61 mg/L (Less than 5) H 09/07/16 01:38 Serum Total Protein 5.4 g/dL (6.0-8.3) L 09/08/16 08:52 Albumin 2.2 g/dL (3.5-5.0) L 09/08/16 08:52 Albumin/Globulin Ratio 0.7 (1.1-2.2) L 09/08/16 08:52 HDL Cholesterol 33 mg/dL (40-59) L 09/07/16 01:38 Urine Clarity Cloudy (Clear) A 09/07/16 00:30 Urine Protein 100 mg/dL (Neg-Trace) H 09/07/16 00:30 Urine Ketones 40 mg/dL (Negative) H 09/07/16 00:30 Urine Blood Large (Negative) H 09/07/16 00:30 Urine Bilirubin Small (Negative) H 09/07/16 00:30 Ur Leukocyte Esterase Small (Negative) H 09/07/16 00:30 Urine Microscopic RBC TNTC per hpf (0-3) H 09/07/16 00:30 Urine Microscopic WBC 30-50 per hpf (0-3) H 09/07/16 00:30 Ur Squamous Epith Cells Moderate per lpf (None-Few) H 09/07/16 00:30 Ur Culture Indicated? YES (NO) A 09/07/16 00:30 Entero/Rhino (PCR) DETECTED (Not Detect) A 09/07/16 13:20 - Microbiology Findings Microbiology Findings: Microbiology, Last 48 Hours 09/07/16 01:38 Blood Culture - Preliminary Peripheral Venipuncture No growth. 09/07/16 00:30 Urine Culture - Final Urine,Clean Catch No pathogens isolated. 09/07/16 06:00 Sputum Culture - Preliminary Sputum - Clinical Findings Intake & Output: Intake & Output 09/07/16 09/08/16 09/08/16 23:59 07:59 15:59 Intake Total 340 / 340 0 / 0 480 / 480 Output Total 1500 / 1500 150 / 150 Balance -1160 / -1160 -150 / -150 480 / 480 Weight 84.3 kg Consult Discharge Plan - Plan Referrals: Darrin Cobos, CUSTOMER ASSISTANT [Primary Care Provider] -
[2016-09-08] MEDS ORDERED: Albuterol 2.5 MG/3 ML NEBULIZER IH PRN (11:43)
[2016-09-08] MEDS: *HR* HYDROmorphone 2 MG/ML SYRINGE IVP PRN ×2 (13:24→19:57)
--- NOTE | 2016-09-08 13:31 | Orthopedics Progress Note ---
Date of Encounter: 09/08/16 Time of Encounter: 13:29 Subjective Principal diagnosis: Fracture Femur Interval history: The patient is without complaints. Afebrile vital signs stable. Is being transfused 2 units of packed red cells. Is on antibiotic therapy for lung consolidation. He has brisk capillary refill in the left lower extremity. He has sensation in all digits. No active motor function and digits or ankle secondary to preoperative block. Stable. Mobilize as tolerated. Objective Vital signs: Vital Signs Temp Pulse Resp BP Pulse Ox 09/08/16 13:23 106/64 09/08/16 12:15 98.6 F 89 20 99/64 96 09/08/16 11:45 98.0 F 87 18 98/59 95 09/08/16 10:53 98.0 F 87 18 98/59 95 09/08/16 08:08 16 96 09/08/16 06:50 98.2 F 91 18 102/59 96 09/08/16 03:48 98.7 F 91 16 106/68 98 09/07/16 23:57 97.7 F 99 16 101/64 97 09/07/16 22:00 98.1 F 111 16 107/64 93 09/07/16 20:50 98.0 F 104 16 120/68 93 09/07/16 20:00 97.4 F L 113 18 103/63 93 09/07/16 19:30 99.7 F H 94 18 113/72 93 09/07/16 18:58 99.7 F H 94 18 113/72 93 09/07/16 18:48 99.7 F H 93 18 118/67 93 09/07/16 18:38 99.7 F H 92 18 123/67 95 09/07/16 18:28 83 20 115/62 100 09/07/16 18:18 83 18 90/51 98 09/07/16 18:08 98.4 F 88 18 87/53 90 Intake and Output 09/07/16 09/08/16 09/08/16 23:59 07:59 15:59 Intake Total 340 / 340 0 / 0 720 / 720 Output Total 1500 / 1500 150 / 150 275 / 275 Balance -1160 / -1160 -150 / -150 445 / 445 Intake: IV Fluids 100 / 100 Ancef 1,000 MG In 100 / 100 Dextrose 5% (Minibag+) 100 ML 100 ML @ 200 mls/ hr IVPB ONCE ONE Rx#: [id number] Oral 240 / 240 0 / 0 720 / 720 Blood Product 0 / 0 Rbcs Leuko Poor As-1 0 / 0 Unit [id number] Output: Estimated Blood Loss 1000 / 1000 Urine Amount (Catheter) 350 / 350 Catheter 150 / 150 150 / 150 275 / 275 Other: Meal Breakfast Percent of Meal Consumed 0% # Bowel Movements 0 0 Weight 84.3 kg Blood Glucose* 132 Patient Weight 09/08/16 23:59 Weight 84.3 kg - Labs CBC & BMP: 09/08/16 08:52 09/08/16 08:52 Labs: Abnormal lab results WBC 21.5 K/mcL (4.3-11.1) H 09/08/16 08:52 RBC 3.69 M/mcL (4.19-5.50) L 09/08/16 08:52 Hgb 8.3 g/dL (12.9-16.9) L 09/08/16 08:52 Hct 27.9 % (37.5-50.1) L 09/08/16 08:52 MCV 75.6 fL (83.0-100.0) L 09/08/16 08:52 MCH 22.5 pg (28.0-33.3) L 09/08/16 08:52 MCHC 29.7 g/dL (31.6-35.5) L 09/08/16 08:52 RDW 19.8 % (11.5-14.5) H 09/08/16 08:52 Neutrophils # 18.5 K/mcL (1.6-8.9) H 09/08/16 08:52 Monocytes # 1.8 K/mcL (0.0-1.3) H 09/08/16 08:52 PT 13.4 Seconds (9.4-12.1) H 09/06/16 22:13 Carbon Dioxide 30 mEq/L (19-29) H 09/08/16 08:52 Glucose 142 mg/dL (70-99) H 09/08/16 08:52 POC Glucose 132 (58-89) H 09/08/16 11:45 Calcium 8.2 mg/dL (8.6-10.8) L 09/08/16 08:52 Phosphorus 2.1 mg/dL (2.3-4.7) L 09/08/16 08:52 Troponin I 0.07 ng/mL (0-0.03) H* 09/07/16 01:38 C-Reactive Protein 61 mg/L (Less than 5) H 09/07/16 01:38 Serum Total Protein 5.4 g/dL (6.0-8.3) L 09/08/16 08:52 Albumin 2.2 g/dL (3.5-5.0) L 09/08/16 08:52 Albumin/Globulin Ratio 0.7 (1.1-2.2) L 09/08/16 08:52 HDL Cholesterol 33 mg/dL (40-59) L 09/07/16 01:38 Urine Clarity Cloudy (Clear) A 09/07/16 00:30 Urine Protein 100 mg/dL (Neg-Trace) H 09/07/16 00:30 Urine Ketones 40 mg/dL (Negative) H 09/07/16 00:30 Urine Blood Large (Negative) H 09/07/16 00:30 Urine Bilirubin Small (Negative) H 09/07/16 00:30 Ur Leukocyte Esterase Small (Negative) H 09/07/16 00:30 Urine Microscopic RBC TNTC per hpf (0-3) H 09/07/16 00:30 Urine Microscopic WBC 30-50 per hpf (0-3) H 09/07/16 00:30 Ur Squamous Epith Cells Moderate per lpf (None-Few) H 09/07/16 00:30 Ur Culture Indicated? YES (NO) A 09/07/16 00:30 Entero/Rhino (PCR) DETECTED (Not Detect) A 09/07/16 13:20 Consult Discharge Plan - Plan Referrals: Darrin Cobos, SUPERVISOR MODEL MAKING [Primary Care Provider] -
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
[2016-09-08] MEDS: Albuterol Neb 1.25 MG/3 ML VIAL IH SCH ×3 (15:22→19:26)
[2016-09-08] MEDS ORDERED: Nystatin POWDER 30 GM BOTTLE TP SCH (19:00)
[2016-09-08] MEDS: traZODone 50 MG TABLET PO SCH (21:39)
[2016-09-08] MEDS: Nystatin POWDER 30 GM BOTTLE TP SCH (21:41)
[2016-09-09] MEDS: *HR* Morphine Sulfate SR (12 HR) 15 MG TABLET.ER PO SCH ×3 (00:07→17:45)
[2016-09-09] MEDS: Levofloxacin 750 MG/150 ML 750 MG/150 ML BAG IVPB SCH (01:54)
[2016-09-09] MEDS: *HR* OxyCODONE Immed Rel 5 MG TABLET PO PRN ×3 (03:13→19:49)
[2016-09-09] MEDS: Vancomycin 1,500 MG in D5% in Water 250 ML IVPB SCH ×2 (03:14→15:20)
[2016-09-09] MEDS: *HR* Enoxaparin 30 MG/0.3 ML SYRINGE SQ SCH ×2 (05:55→17:45)
[2016-09-09] MEDS: *HR* HYDROmorphone 2 MG/ML SYRINGE IVP PRN ×3 (06:02→22:00)
[2016-09-09 07:40] LABS: Basophils % 0.2 %; Eosinophils # 0.3 K/mcL (0.0-0.6); Eosinophils % 2.7 %; Hematocrit 31.5 % (37.5-50.1); Hemoglobin 9.5 g/dL (12.9-16.9); Immature Granulocytes % 0.9 % (0-4); Lymphocytes # 1.5 K/mcL (0.6-4.6); Lymphocytes % 12.6 %; Mean Corpuscular HGB Conc 30.2 g/dL (31.6-35.5); Mean Corpuscular Hemoglobin 23.6 pg (28.0-33.3); Mean Corpuscular Volume 78.4 fL (83.0-100.0); Mean Platelet Volume 10.1 fL (9.4-12.4); Monocytes # 1.3 K/mcL (0.0-1.3); Monocytes % 10.5 %; Neutrophils # 8.8 K/mcL (1.6-8.9); Platelet Count 265 K/mcL (140-400); Red Blood Count 4.02 M/mcL (4.19-5.50); Red Cell Distribution Width 20.3 % (11.5-14.5); Segmented Neutrophils % 73.1 %
[2016-09-09] MEDS: Ipratropium/Albuterol Neb 3 ML IH SCH ×5 (07:53→23:04)
[2016-09-09 08:13] LABS: Magnesium 1.5 mg/dL (1.6-2.6)
[2016-09-09 08:18] LABS: BUN/Creatinine Ratio 22 (6-26); Blood Urea Nitrogen 18 mg/dL (8-26); Calcium 8.4 mg/dL (8.6-10.8); Carbon Dioxide 28 mEq/L (19-29); Chloride 102 mEq/L (98-109); Glucose 115 mg/dL (70-99); Osmolality,Calculated 289 (280-300); Potassium 4.5 mEq/L (3.5-4.5); Sodium 138 mEq/L (136-145); eGFR For African Americans > 60 (> 60); eGFR For Non-African Americans > 60 (> 60)
[2016-09-09] MEDS: Insulin LISPRO 300 UNITS/3 ML VIAL SQ SCH ×4 (08:37→22:01)
[2016-09-09] MEDS: Multivit/Ca/Min/Fe/FA 1 TAB TABLET PO SCH (08:43)
[2016-09-09] MEDS: Cyanocobalamin (B-12) 1,000 MCG TABLET PO SCH (08:43)
[2016-09-09] MEDS: Metoprolol XL (24 HR) Succ 25 MG TAB.ER.24H PO SCH (08:43)
[2016-09-09] MEDS: Pregabalin 50 MG CAPSULE PO SCH ×2 (08:44→22:00)
[2016-09-09] MEDS: Nystatin POWDER 30 GM BOTTLE TP SCH ×2 (11:50→22:01)
[2016-09-09] MEDS ORDERED: Magnesium Sulfate 1 GM in D5% in Water 100 ML IVPB ONE (17:08)
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
--- NOTE | 2016-09-09 18:29 | Orthopedics Progress Note ---
Date of Encounter: 09/09/16 Time of Encounter: 18:27 Subjective Principal diagnosis: Fracture Femur Interval history: The patient is without complaints. Afebrile vital signs stable. Is on antibiotic therapy for lung consolidation. Swelling in left lower extremity. He has brisk capillary refill in the left lower extremity. He has sensation in all digits. Wiggles toes. NVI. Stable. Mobilize as tolerated. D/C planning per Dr Child. Objective Vital signs: Vital Signs Temp Pulse Resp BP Pulse Ox 09/09/16 16:03 18 97 09/09/16 15:56 98.4 F 94 18 133/74 98 09/09/16 11:06 18 95 09/09/16 10:29 98.4 F 94 18 124/67 96 09/09/16 07:53 18 93 09/09/16 07:29 97.5 F L 87 18 137/76 93 09/09/16 04:28 98.1 F 90 20 125/74 95 09/09/16 01:46 98.2 F 87 18 116/67 98 09/08/16 22:55 98.2 F 94 16 108/65 95 09/08/16 22:40 97.9 F 94 16 120/67 09/08/16 20:26 98.8 F 96 18 131/70 09/08/16 19:26 20 96 Intake and Output 09/09/16 09/09/16 09/09/16 07:59 15:59 23:59 Intake Total 1650 / 1650 120 / 120 Output Total 2545 / 2545 0 / 0 Balance -895 / -895 120 / 120 Intake: IV Fluids 250 / 250 Vancocin 1,500 MG In 250 / 250 Dextrose 5% 250 ML @ 166. 667 mls/hr IVPB Q12H [facility] Rx#:[id number] Oral 1100 / 1100 120 / 120 Blood Product 300 / 300 Rbcs Leuko Poor As-1 300 / 300 Unit [id number] Output: Urine 2545 / 2545 0 / 0 Other: Meal Breakfast Percent of Meal Consumed 75% Stool Size Copious Smear Copious Stool Consistency loose loose loose soft soft Stool Color Jimbo Colored Brown Brown # Bowel Movements 0 1 1 Weight 84.3 kg Blood Glucose* 112 222 141 Patient Weight 09/09/16 23:59 Weight 84.3 kg - Labs CBC & BMP: 09/09/16 06:45 09/09/16 06:45 Labs: Abnormal lab results WBC 12.1 K/mcL (4.3-11.1) H 09/09/16 06:45 RBC 4.02 M/mcL (4.19-5.50) L 09/09/16 06:45 Hgb 9.5 g/dL (12.9-16.9) L 09/09/16 06:45 Hct 31.5 % (37.5-50.1) L 09/09/16 06:45 MCV 78.4 fL (83.0-100.0) L 09/09/16 06:45 MCH 23.6 pg (28.0-33.3) L 09/09/16 06:45 MCHC 30.2 g/dL (31.6-35.5) L 09/09/16 06:45 RDW 20.3 % (11.5-14.5) H 09/09/16 06:45 PT 13.4 Seconds (9.4-12.1) H 09/06/16 22:13 Glucose 115 mg/dL (70-99) H 09/09/16 06:45 POC Glucose 141 (58-89) H 09/09/16 16:21 Calcium 8.4 mg/dL (8.6-10.8) L 09/09/16 06:45 Phosphorus 2.0 mg/dL (2.3-4.7) L 09/09/16 06:45 Magnesium 1.5 mg/dL (1.6-2.6) L 09/09/16 06:45 Troponin I 0.07 ng/mL (0-0.03) H* 09/07/16 01:38 C-Reactive Protein 61 mg/L (Less than 5) H 09/07/16 01:38 Serum Total Protein 5.4 g/dL (6.0-8.3) L 09/08/16 08:52 Albumin 2.2 g/dL (3.5-5.0) L 09/08/16 08:52 Albumin/Globulin Ratio 0.7 (1.1-2.2) L 09/08/16 08:52 HDL Cholesterol 33 mg/dL (40-59) L 09/07/16 01:38 Urine Clarity Cloudy (Clear) A 09/07/16 00:30 Urine Protein 100 mg/dL (Neg-Trace) H 09/07/16 00:30 Urine Ketones 40 mg/dL (Negative) H 09/07/16 00:30 Urine Blood Large (Negative) H 09/07/16 00:30 Urine Bilirubin Small (Negative) H 09/07/16 00:30 Ur Leukocyte Esterase Small (Negative) H 09/07/16 00:30 Urine Microscopic RBC TNTC per hpf (0-3) H 09/07/16 00:30 Urine Microscopic WBC 30-50 per hpf (0-3) H 09/07/16 00:30 Ur Squamous Epith Cells Moderate per lpf (None-Few) H 09/07/16 00:30 Ur Culture Indicated? YES (NO) A 09/07/16 00:30 Entero/Rhino (PCR) DETECTED (Not Detect) A 09/07/16 13:20 - VTE Documentation of Mechanical Device: Venous foot pump, device Consult Discharge Plan - Plan Referrals: Darrin Cobos, FUTURES TRADER [Primary Care Provider] -
[2016-09-09] MEDS: traZODone 50 MG TABLET PO SCH (22:00)
[2016-09-10] MEDS: *HR* Morphine Sulfate SR (12 HR) 15 MG TABLET.ER PO SCH ×2 (00:10→08:08)
[2016-09-10] MEDS: *HR* OxyCODONE Immed Rel 5 MG TABLET PO PRN ×2 (03:14→11:47)
[2016-09-10] MEDS: Vancomycin 1,500 MG in D5% in Water 250 ML IVPB SCH (03:17)
[2016-09-10] MEDS: Levofloxacin 750 MG/150 ML 750 MG/150 ML BAG IVPB SCH (03:18)
[2016-09-10] MEDS: Ipratropium/Albuterol Neb 3 ML IH SCH ×3 (03:46→11:25)
[2016-09-10] MEDS: *HR* Enoxaparin 30 MG/0.3 ML SYRINGE SQ SCH (05:19)
[2016-09-10 05:33] LABS: BUN/Creatinine Ratio 20 (6-26); Blood Urea Nitrogen 15 mg/dL (8-26); Calcium 8.3 mg/dL (8.6-10.8); Carbon Dioxide 29 mEq/L (19-29); Chloride 104 mEq/L (98-109); Glucose 125 mg/dL (70-99); Magnesium 1.4 mg/dL (1.6-2.6); Osmolality,Calculated 288 (280-300); Potassium 4.5 mEq/L (3.5-4.5); Sodium 138 mEq/L (136-145); eGFR For African Americans > 60 (> 60); eGFR For Non-African Americans > 60 (> 60)
[2016-09-10] MEDS: *HR* HYDROmorphone 2 MG/ML SYRINGE IVP PRN ×2 (05:38→14:37)
[2016-09-10 05:42] LABS: Basophils % 0.4 %; Eosinophils # 0.4 K/mcL (0.0-0.6); Eosinophils % 3.5 %; Hematocrit 26.2 % (37.5-50.1); Hemoglobin 8.2 g/dL (12.9-16.9); Immature Granulocytes % 1.7 % (0-4); Lymphocytes # 1.4 K/mcL (0.6-4.6); Lymphocytes % 14.1 %; Mean Corpuscular HGB Conc 31.3 g/dL (31.6-35.5); Mean Corpuscular Hemoglobin 24.5 pg (28.0-33.3); Mean Corpuscular Volume 78.2 fL (83.0-100.0); Mean Platelet Volume 10.3 fL (9.4-12.4); Monocytes # 1.1 K/mcL (0.0-1.3); Monocytes % 11.4 %; Neutrophils # 6.9 K/mcL (1.6-8.9); Platelet Count 230 K/mcL (140-400); Red Blood Count 3.35 M/mcL (4.19-5.50); Red Cell Distribution Width 20.5 % (11.5-14.5); Segmented Neutrophils % 68.9 %
--- NOTE | 2016-09-10 07:50 | Orthopedics Progress Note ---
Date of Encounter: 09/10/16 Time of Encounter: 07:49 Subjective Principal diagnosis: Fracture Femur Interval history: Patient was seen this morning doing well without complaints. Afebrile vital signs stable. Operative extremity: Neurovascularly intact Dressing clean dry and intact Calves nontender Assessment and plan: Continue with postoperative care ortho stable for discharge Objective Vital signs: Vital Signs Temp Pulse Resp BP Pulse Ox 09/10/16 03:10 98.1 F 90 16 156/75 93 09/09/16 21:06 98.3 F 101 16 153/75 96 09/09/16 20:05 18 97 09/09/16 16:03 18 97 09/09/16 15:56 98.4 F 94 18 133/74 98 09/09/16 11:06 18 95 09/09/16 10:29 98.4 F 94 18 124/67 96 09/09/16 07:53 18 93 Intake and Output 09/09/16 09/09/16 09/10/16 15:59 23:59 07:59 Intake Total 120 / 120 850 / 850 720 / 720 Output Total 0 / 0 360 / 360 1150 / 1150 Balance 120 / 120 490 / 490 -430 / -430 Intake: IV Fluids 250 / 250 Vancocin 1,500 MG In 250 / 250 Dextrose 5% 250 ML @ 166. 667 mls/hr IVPB Q12H [facility] Rx#:[id number] Oral 120 / 120 600 / 600 720 / 720 Output: Urine 0 / 0 360 / 360 1150 / 1150 Other: Meal Breakfast Percent of Meal Consumed 75% Stool Size Smear Large Stool Consistency loose loose Stool Color Brown Brown # Bowel Movements 1 1 Weight 84.5 kg Blood Glucose* 222 173 Patient Weight 09/10/16 23:59 Weight 84.5 kg - Labs CBC & BMP: 09/10/16 04:33 09/10/16 04:33 Labs: Abnormal lab results RBC 3.35 M/mcL (4.19-5.50) L 09/10/16 04:33 Hgb 8.2 g/dL (12.9-16.9) L 09/10/16 04:33 Hct 26.2 % (37.5-50.1) L 09/10/16 04:33 MCV 78.2 fL (83.0-100.0) L 09/10/16 04:33 MCH 24.5 pg (28.0-33.3) L 09/10/16 04:33 MCHC 31.3 g/dL (31.6-35.5) L 09/10/16 04:33 RDW 20.5 % (11.5-14.5) H 09/10/16 04:33 PT 13.4 Seconds (9.4-12.1) H 09/06/16 22:13 Glucose 125 mg/dL (70-99) H 09/10/16 04:33 POC Glucose 173 (58-89) H 09/09/16 21:06 Calcium 8.3 mg/dL (8.6-10.8) L 09/10/16 04:33 Phosphorus 2.0 mg/dL (2.3-4.7) L 09/09/16 06:45 Magnesium 1.4 mg/dL (1.6-2.6) L 09/10/16 04:33 Troponin I 0.07 ng/mL (0-0.03) H* 09/07/16 01:38 C-Reactive Protein 61 mg/L (Less than 5) H 09/07/16 01:38 Serum Total Protein 5.4 g/dL (6.0-8.3) L 09/08/16 08:52 Albumin 2.2 g/dL (3.5-5.0) L 09/08/16 08:52 Albumin/Globulin Ratio 0.7 (1.1-2.2) L 09/08/16 08:52 HDL Cholesterol 33 mg/dL (40-59) L 09/07/16 01:38 Urine Clarity Cloudy (Clear) A 09/07/16 00:30 Urine Protein 100 mg/dL (Neg-Trace) H 09/07/16 00:30 Urine Ketones 40 mg/dL (Negative) H 09/07/16 00:30 Urine Blood Large (Negative) H 09/07/16 00:30 Urine Bilirubin Small (Negative) H 09/07/16 00:30 Ur Leukocyte Esterase Small (Negative) H 09/07/16 00:30 Urine Microscopic RBC TNTC per hpf (0-3) H 09/07/16 00:30 Urine Microscopic WBC 30-50 per hpf (0-3) H 09/07/16 00:30 Ur Squamous Epith Cells Moderate per lpf (None-Few) H 09/07/16 00:30 Ur Culture Indicated? YES (NO) A 09/07/16 00:30 Entero/Rhino (PCR) DETECTED (Not Detect) A 09/07/16 13:20 - VTE Documentation of Mechanical Device: Venous foot pump, device Consult Discharge Plan - Plan Referrals: Darrin Cobos, IMPLEMENTATION LEAD [Primary Care Provider] -
[2016-09-10] MEDS ORDERED: Magnesium Sulfate 2 GM in D5% in Water 100 ML IVPB ONE (07:54)
[2016-09-10] MEDS: Insulin LISPRO 300 UNITS/3 ML VIAL SQ SCH ×2 (08:06→12:24)
[2016-09-10] MEDS: Multivit/Ca/Min/Fe/FA 1 TAB TABLET PO SCH (08:08)
[2016-09-10] MEDS: Cyanocobalamin (B-12) 1,000 MCG TABLET PO SCH (08:08)
[2016-09-10] MEDS: Pregabalin 50 MG CAPSULE PO SCH (08:08)
[2016-09-10] MEDS: Nystatin POWDER 30 GM BOTTLE TP SCH (08:12)
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
[2016-09-10] MEDS ORDERED: Metoprolol XL (24 HR) Succ 25 MG TAB.ER.24H PO SCH (09:00)
--- NOTE | 2016-09-10 10:24 | Physician Discharge Referral ---
ExtendedCare Referral Info Transfer To: [facility] Provider in Charge: luca Provider in Charge after Transfer: PCP Institutional Level of Care: Skilled - Diagnosis (1) Closed left femoral fracture Status: Acute (2) Acute respiratory failure with hypoxemia Status: Acute (3) Pneumonia Status: Acute (4) Acute blood loss anemia Status: Acute (5) Cardiomyopathy Status: Chronic (6) COPD (chronic obstructive pulmonary disease) Status: Chronic (7) Hypertension Status: Chronic - Transfer Medications Prescriptions: OxyCODONE Immed Rel [Roxicodone 5 MG] 10 mg PO Q4HR PRN #20 tablet PRN Reason: Moderate pain 4-6 Morphine Sulfate SR (12 HR) [MS Contin] 15 mg PO Q8HR #30 tablet.er Levofloxacin [Levaquin] 750 mg PO DAILY #4 tablet Home Medications: Biotin 500 mcg PO DAILY 12/27/14 [History] Calcium Carbonate [Calcium] 1,500 mg PO DAILY 12/27/14 [History] Cyanocobalamin (Vitamin B-12) [Vitamin B-12] 1 tab PO DAILY 12/27/14 [History] Multivitamin [Multivitamins] 1 tab PO DAILY 12/27/14 [History] Pregabalin [Lyrica] 200 mg PO BID 12/27/14 [History] TraZODone 50 - 100 mg PO HS PRN 12/27/14 [History] Morphine Sulfate [Ms Contin] 15 mg PO Q8H 01/21/15 [History] Cyanocobalamin (B-12) [Vitamin B12] 1,000 mcg IM QMONTH 03/28/16 [History] Lidocaine [Lidocare] 1 - 3 patch TP Q12H PRN 09/07/16 [History] Sumatriptan [Imitrex] 20 mg NS AD PRN 09/07/16 [History] Albuterol Neb [Proventil Neb] 2.5 mg IH [id number] PRN #0 inhsol 09/10/16 [Rx] Docusate [Colace] 100 mg PO BID PRN capsule 09/10/16 [Rx] Enoxaparin [Lovenox] 30 mg SQ Q12HCO #60 syringe 09/10/16 [Rx] Ferrous Sulfate 325 mg PO DAILY@0800 tablet 09/10/16 [Rx] GuaiFENesin ER [Mucinex] 600 mg PO BID #10 tbbp.12hr 09/10/16 [Rx] Ipratropium/Albuterol Neb [Duoneb] 3 ml IH [id number] inhsol 09/10/16 [Rx] Levofloxacin [Levaquin] 750 mg PO DAILY #4 tablet 09/10/16 [Rx] Magnesium Oxide [Mag-Ox] 400 mg PO BID #0 tablet 09/10/16 [Rx] Metoprolol XL (24 HR) Succ [Toprol Xl] 25 mg PO DAILY tab.er.24h 09/10/16 [Rx] Morphine Sulfate SR (12 HR) [MS Contin] 15 mg PO Q8HR #30 tablet.er 09/10/16 [Rx ] Nystatin POWDER [Nystop] 1 appl TP BID bottle 09/10/16 [Rx] OxyCODONE Immed Rel [Roxicodone 5 MG] 10 mg PO Q4HR PRN #20 tablet 09/10/16 [Rx] Ropinirole [Requip] 1 mg PO HS PRN #0 tablet 09/10/16 [Rx] Allergies/Adverse Reactions: Allergies pioglitazone [From Actos] Allergy (Unknown, Verified 12/27/14 07:43) UNKNOWN Amoxicillin [From Augmentin] Adverse Reaction (Mild, Verified 12/27/14 07:43) Nausea clavulanic acid [From Augmentin] Adverse Reaction (Mild, Verified 12/27/14 07:43 ) Nausea codeine Adverse Reaction (Mild, Verified 12/27/14 07:43) Hallucinating unknown reaction - Respiratory Orders Oxygen / L per min (2) Smoking Cessation: Smoking cessation has been advised. For more information, call the [place] Tobacco Quit Line at 6-045-TKBC-NOW. - Lab Orders Lab Orders: Other (include drug levels w/frequency) (cbc and magnesium in 1 week ) - Advance Directives Code Status: Full Code - Mobility Orders Ambulate - Rehabiliation Orders Rehab Potential: Good Rehab Orders: Evaluation for Physical Therapy, Evaluation for Occupational Therapy - Diet Orders Cardiac CERTIFICATION: I certify that the transfer of the above named patient to an Extended Care Facility is necessary for the continuing treatment of the diagnosis listed. The above information is true and accurate reflection of patient's current condition. Confidential - Redisclosure prohibited without a patient's written consent.
[2016-09-10 12:06] VITALS: BP 128/72
[2016-09-10] MEDS ORDERED: Aminoglycoside Consult 1 EACH MC ONE (14:46)
[2016-09-11] MEDS ORDERED: Magnesium Oxide 400 MG TABLET PO SCH (09:00)
== END 2016-09-10 14:47 | DRG 466 ==
LOC: 3ANU → SUATTDRO 21:08
PROVIDERS: ADMIT Nurse Practitioner Acute Care; ATTEND Internal Medicine

== ENCOUNTER 2017-09-29 09:57 | Observation (INO) ==
--- NOTE | 2017-09-29 16:29 | Urology - Consult Note ---
Date of Encounter: 09/29/17 Time of Encounter: 16:28 - Assessment and Plan (1) Right kidney stone Current Visit: No Status: Acute Assessment and plan: 62-year-old man with a history of nephrolithiasis. His surgery on 09/27/2017 was difficult to determine if I was able to completely clear him of stone. A stent was placed with the string and now the stent somewhat dislodged. I have ordered a CAT scan and he is going down to have that obtained. I discussed with him that the stent will need to come out. My preference would be to leave it in overnight today and then remove it tomorrow morning. If his pain worsens or his infection becomes more severe, that I would recommend placement of a right nephrostomy tube when interventional radiology is available tomorrow. We will continue him on IV antibiotic and monitor him closely. (2) UTI (urinary tract infection) Current Visit: No Status: Acute Qualifiers: Urinary tract infection type: site unspecified Hematuria presence: with hematuria Qualified Code(s): N39.0 - Urinary tract infection, site not specified; R31.9 - Hematuria, unspecified Urology CN:HPI Consult date: 09/29/17 Reason for consult Urology: Other (UtI with fever, nephrolithiasis) History of present illness: 62-year-old man with a history of nephrolithiasis. He is status post a right percutaneous nephrolithotomy from 08/30/2017. He then underwent a staged right ureteroscopy, laser lithotripsy, and stent exchange on 09/27/2017. He reports having some fevers chills starting yesterday. He was not feeling well and came to the emergency department. There, he was noted to have a temperature to 100.2 degrees. He was given IV antibiotic and transferred to [facility]. I reviewed his KUB which shows some dislodgment of his stent. There is still a good curl seen within the kidney, but the lower aspect of the stent is likely within the urethra. He reports that he is having some incontinence. He also reports some abdominal pain. Past Med Surg Social Fam HX - Past Medical History Medical history: arthritis, CHF, COPD, coronary artery disease, hypertension, malignancy, migraine, peripheral artery disease, other Psychiatric history: anxiety, depression - Past Surgical History Surgical History: bariatric surgery, knee replacement, other - Social History Smoking Status: Former smoker Smokeless Tobacco Status: No Alcohol use: none Drug use: none - Family History Brother Living Status: Hx Family Cancer: Yes Father Living Status: Hx Family Cancer: Yes Medications and Allergies Albuterol Sulfate [Ventolin Hfa] 2 puff IH Q4H PRN 08/30/17 [History] Biotin 1 mg PO DAILY 08/30/17 [History] Calcium Carbonate [Calcium] 500 mg PO DAILY 08/30/17 [History] Cholecalciferol (D-3) [Vitamin D] 5,000 unit PO DAILY 08/30/17 [History] Cyanocobalamin (Vitamin B-12) [Vitamin B-12] 250 mcg PO DAILY 08/30/17 [History] Ferrous Sulfate [Iron] 325 mg PO DAILY 08/30/17 [History] Fluticasone/Salmeterol [Advair 500-50 Diskus] 1 puff IH BID 08/30/17 [History] Glucosamine HCl/Chondr Jernigan A Na [Cvs Glucosamine-Chondr Tablet] 1 tab PO DAILY [History] Morphine Sulfate [Arymo ER] 15 mg PO Q8H 08/30/17 [History] Multivitamin [One Daily Multivitamin] 1 tab PO DAILY 08/30/17 [History] Panax Ginseng Root [Romanian Ginseng] 1,000 mg PO DAILY 08/30/17 [History] Pregabalin [Lyrica] 200 mg PO BID 08/30/17 [History] Trazodone HCl 50 - 100 mg PO HS PRN 08/30/17 [History] Zolpidem [Ambien] 10 mg PO HS PRN 08/30/17 [History] rOPINIRole [Requip] 1 mg PO HS 08/30/17 [History] HYDROcodone/Acet 5/325 mg [[place] 5-325 mg] 1 tab PO Q6H PRN 3 Days #15 tablet [Rx] Meloxicam 15 mg PO DAILY 09/27/17 [History] Sumatriptan [Imitrex] 20 mg NS Q2H PRN 09/29/17 [History] 3 Allergy/AdvReac Type Severity Reaction Status Date / Time codeine Allergy Mild Hallucinati Verified 09/29/17 14:16 ng Amoxicillin [From Augmentin] Allergy UNKNOWN Verified 09/29/17 14:16 clavulanic acid Allergy UNKNOWN Verified 09/29/17 14:16 [From Augmentin] pioglitazone [From Actos] Allergy UNKNOWN Verified 09/29/17 14:16 Review of Systems - Constitutional chills, fever(s) - EENT Nose, mouth and throat: no dizziness - Cardiovascular no chest pain - Respiratory no dyspnea - Gastrointestinal nausea, no vomiting - Genitourinary flank pain, hematuria - Musculoskeletal no back pain - Integumentary no erythema, no rash - Neurological no weakness - Psychiatric no suicidal ideation - Hematologic/Lymphatic no easy bleeding - Allergic/Immunologic no wheezing Exam Initial Vital Signs Temp Pulse Resp BP Pulse Ox 98.2 F 74 16 162/73 98 09/29/17 14:39 09/29/17 14:39 09/29/17 14:39 09/29/17 14:39 09/29/17 14:39 - General physical appearance Present: well developed, well nourished, no distress - Eyes Absent: icteric - ENT Present: normal nares - Neck Present: trachea midline - Respiratory Present: normal respiratory effort - Cardiovascular Cardiovascular exam IM: RRR - Abdomen Abdomen: Present: soft - Integumentary Present: no growths - Neurologic Present: normal coordination - Musculoskeletal Present: other (grossly normal.) Urology Results - Labs All other labs normal. - Imaging Abdominal x-ray: report reviewed, image reviewed Consult Discharge Plan - Plan Referrals: Darrin Cobos, DATA WAREHOUSE SPECIALIST [Primary Care Provider] -
--- NOTE | 2017-09-29 18:21 | Internal Med History&Physical ---
Date of Encounter: 09/29/17 Time of Encounter: 17:00 Internal Medicine - H&P: HPI Chief complaint: Dysuria Admitted From: Home Plans for Post Hospital Care: Home History of present illness: Patient is a 62-year-old male with past medical history significant for chronic pain [facility] secondary to urinary symptoms. Patient reports a one-day history of fever/chills with lower abdominal discomfort in addition to dysuria. Patient was concerned and decided to go to [place] ER for evaluation. In the ER, patient was found to have leukocytosis with WBC of 18.4 with pyuria on urinalysis. Patient was transferred to [facility] as patient known to Dr. Aponte. Past Med Surg Social Fam HX - Past Medical History Medical history: arthritis, CHF, COPD, coronary artery disease, hypertension, malignancy, migraine, peripheral artery disease, other Psychiatric history: anxiety, depression - Past Surgical History Surgical History: bariatric surgery, knee replacement, other - Social History Smoking Status: Former smoker Smokeless Tobacco Status: No Alcohol use: none Drug use: none - Family History Brother Living Status: Hx Family Cancer: Yes Father Living Status: Hx Family Cancer: Yes Internal Medicine - H&P: Meds Albuterol Sulfate [Ventolin Hfa] 2 puff IH Q4H PRN 08/30/17 [History] Biotin 1 mg PO DAILY 08/30/17 [History] Calcium Carbonate [Calcium] 500 mg PO DAILY 08/30/17 [History] Cholecalciferol (D-3) [Vitamin D] 5,000 unit PO DAILY 08/30/17 [History] Cyanocobalamin (Vitamin B-12) [Vitamin B-12] 250 mcg PO DAILY 08/30/17 [History] Ferrous Sulfate [Iron] 325 mg PO DAILY 08/30/17 [History] Fluticasone/Salmeterol [Advair 500-50 Diskus] 1 puff IH BID 08/30/17 [History] Glucosamine HCl/Chondr Jernigan A Na [Cvs Glucosamine-Chondr Tablet] 1 tab PO DAILY [History] Morphine Sulfate [Arymo ER] 15 mg PO Q8H 08/30/17 [History] Multivitamin [One Daily Multivitamin] 1 tab PO DAILY 08/30/17 [History] Panax Ginseng Root [Greek Ginseng] 1,000 mg PO DAILY 08/30/17 [History] Pregabalin [Lyrica] 200 mg PO BID 08/30/17 [History] Trazodone HCl 50 - 100 mg PO HS PRN 08/30/17 [History] Zolpidem [Ambien] 10 mg PO HS PRN 08/30/17 [History] rOPINIRole [Requip] 1 mg PO HS 08/30/17 [History] HYDROcodone/Acet 5/325 mg [[place] 5-325 mg] 1 tab PO Q6H PRN 3 Days #15 tablet [Rx] Meloxicam 15 mg PO DAILY 09/27/17 [History] Sumatriptan [Imitrex] 20 mg NS Q2H PRN 09/29/17 [History] 3 Allergy/AdvReac Type Severity Reaction Status Date / Time codeine Allergy Mild Hallucinati Verified 09/29/17 14:16 ng Amoxicillin [From Augmentin] Allergy UNKNOWN Verified 09/29/17 14:16 clavulanic acid Allergy UNKNOWN Verified 09/29/17 14:16 [From Augmentin] pioglitazone [From Actos] Allergy UNKNOWN Verified 09/29/17 14:16 All Systems PM: A 10-system review of systems was performed and is negative for pertinent findings except as documented above in the HPI. - Constitutional Vitals: Temp Pulse Resp BP Pulse Ox 98.2 F 74 16 162/73 98 09/29/17 14:39 09/29/17 14:39 09/29/17 14:39 09/29/17 14:39 09/29/17 14:39 General appearance: Present: A&O X 3, no acute distress - Eye Eye exam: Present: normal appearance - ENT ENT exam: Present: mucous membranes moist - Respiratory Respiratory exam: Present: CTAB. Absent: accessory muscle use, rales, rhonchi, wheezes - Cardiovascular Cardiovascular exam: Present: RRR, +S1, +S2. Absent: diastolic murmur, gallop, rubs, systolic murmur - GI/Abdominal GI/Abdominal exam: Present: tenderness (Lower abdominal tenderness) - Extremities Exam Extremities exam: Absent: pedal edema - Psychiatric Psychiatric exam: Present: normal mood - Skin Skin exam: Present: normal color Internal Med - H&P Results - Impressions ITS Impressions Abdomen/Pelvis CT 09/29/17 14:24 IMPRESSION: 1. Compared with the previous evaluation there is now hydronephrosis in the right kidney possibly related to migration of the ureteric stent. The upper end of the stent appears to be in the lower aspect of the right renal pelvis however the lower end of the stent appears to be below the prostate in the urethra. Redemonstration of bilateral nephrolithiasis. 2. Mild ascites mostly in the pelvis. 3. Air in the biliary system likely related to biliary enteric anastomosis. D/ / 09/29/2017 17:16:57 Luiza Christine MD / [email or web address] Interpreting Provider: Luiza Christine MD - Assessment and plan (1) Right kidney stone Current Visit: No Status: Acute Assessment and plan: Urology consult with recommendations for right nephrostomy tube with interventional radiology on 09/30/17 (2) UTI (urinary tract infection) Current Visit: No Status: Acute Assessment and plan: Will treat with Cipro Qualifiers: Urinary tract infection type: site unspecified Hematuria presence: with hematuria Qualified Code(s): N39.0 - Urinary tract infection, site not specified; R31.9 - Hematuria, unspecified (3) Chronic pain Current Visit: Yes Status: Acute Assessment and plan: Continue home medications Qualifiers: Qualified Code(s): G89.29 - Other chronic pain (4) DVT prophylaxis Current Visit: No Status: Acute Assessment and plan: Subcutaneous heparin - Time Spent With Patient Total time spent is greater than 50% in coordination of care (as documented) at patient's floor/unit and/or counseling patient:
[2017-09-29] MEDS ORDERED: Naloxone 0.4 MG/ML INJ IVP PRN (18:27)
[2017-09-29] MEDS ORDERED: SUMATRIPTAN 20 MG NS PRN (18:34)
[2017-09-29] MEDS: *HR* HYDROcodone/Acet 5/325 mg TABLET PO PRN (19:12)
[2017-09-29] MEDS: Budesonide/Formoterol 160/4.5 MDI IH SCH (19:54)
[2017-09-29] MEDS: *HR* Heparin 5,000 UNIT/ML VIAL SQ SCH (21:17)
[2017-09-29] MEDS: rOPINIRole 1 MG TABLET PO SCH (21:17)
[2017-09-29] MEDS: *HR* Morphine Sulfate SR (12 HR) 15 MG TABLET.ER PO SCH (21:17)
[2017-09-29] MEDS: Pregabalin 50 MG CAPSULE PO SCH (21:17)
[2017-09-30 01:34] LABS: Basophils % 0.2 %; Hematocrit 38.3 % (37.5-50.1); Hemoglobin 12.6 g/dL (12.9-16.9); Lymphocytes # 0.7 K/mcL (0.6-4.6); Lymphocytes % 4.5 %; Mean Corpuscular HGB Conc 32.9 g/dL (31.6-35.5); Mean Corpuscular Hemoglobin 29.2 pg (28.0-33.3); Mean Corpuscular Volume 88.9 fL (83.0-100.0); Mean Platelet Volume 10.9 fL (9.4-12.4); Monocytes # 1.6 K/mcL (0.0-1.3); Monocytes % 10.1 %; Platelet Count 148 K/mcL (140-400); Red Blood Count 4.31 M/mcL (4.19-5.50); Red Cell Distribution Width 13.5 % (11.5-14.5); Segmented Neutrophils % 84.2 %
[2017-09-30 01:46] LABS: BUN/Creatinine Ratio 23 (6-26); Blood Urea Nitrogen 15 mg/dL (8-23); Calcium 8.2 mg/dL (8.6-10.3); Carbon Dioxide 26 mEq/L (23-29); Chloride 110 mEq/L (98-107); Glucose 130 mg/dL (70-105); Osmolality,Calculated 295 (280-300); Potassium 3.1 mEq/L (3.5-5.1); Sodium 141 mEq/L (136-145); eGFR For African Americans > 60 (> 60); eGFR For Non-African Americans > 60 (> 60)
[2017-09-30] MEDS: *HR* HYDROcodone/Acet 5/325 mg TABLET PO PRN ×4 (03:01→22:31)
[2017-09-30] MEDS: *HR* Morphine Sulfate SR (12 HR) 15 MG TABLET.ER PO SCH ×3 (03:01→18:12)
[2017-09-30] MEDS ORDERED: Acetaminophen 325 MG TABLET PO PRN (03:36)
[2017-09-30] MEDS: *HR* Heparin 5,000 UNIT/ML VIAL SQ SCH ×3 (05:20→21:13)
--- NOTE | 2017-09-30 07:21 | Urology Progress Note ---
Date of Encounter: 09/30/17 Time of Encounter: 07:19 - Assessment and Plan (1) Right kidney stone Current Visit: No Status: Acute Assessment and plan: Two small stones remain on the right. We will observe for now. There is a risk that they could pass while he has this infection. I will order an INR today. If his fever worsens or he develops significant pain, we can request nephrostomy tube placement by IR if necessary. (2) UTI (urinary tract infection) Current Visit: No Status: Inactive Assessment and plan: Continue IV antibiotics. Await urine culture results. Qualifiers: Urinary tract infection type: site unspecified Hematuria presence: with hematuria Qualified Code(s): N39.0 - Urinary tract infection, site not specified; R31.9 - Hematuria, unspecified Progress Note Narrative: doing okay today. He had a low grade temperature overnight. WBC is improved. CT reviewed. I removed the stent. He has two stones remaining in the lower pole calyx on the right. Objective Initial Vital Signs Temp Pulse Resp BP Pulse Ox 98.2 F 74 16 162/73 98 09/29/17 14:39 09/29/17 14:39 09/29/17 14:39 09/29/17 14:39 09/29/17 14:39 - General physical appearance Present: well developed, well nourished, no distress - Respiratory Present: normal expansion - Abdomen Present: soft - Genitourinary Present: normal penis with no external lesions - Labs 09/30/17 01:10 09/30/17 01:10 Diabetes panel 09/30/17 Range/Units 01:10 Sodium 141 (136-145) mEq/L Potassium 3.1 L (3.5-5.1) mEq/L Chloride 110 H (98-107) mEq/L Carbon Dioxide 26 (23-29) mEq/L BUN 15 (8-23) mg/dL Creatinine 0.65 L (0.70-1.30) mg/dL Glucose 130 H (70-105) mg/dL Calcium 8.2 L (8.6-10.3) mg/dL Calcium panel 09/30/17 Range/Units 01:10 Calcium 8.2 L (8.6-10.3) mg/dL Pituitary panel 09/30/17 Range/Units 01:10 Sodium 141 (136-145) mEq/L Potassium 3.1 L (3.5-5.1) mEq/L Chloride 110 H (98-107) mEq/L Carbon Dioxide 26 (23-29) mEq/L BUN 15 (8-23) mg/dL Creatinine 0.65 L (0.70-1.30) mg/dL Glucose 130 H (70-105) mg/dL Calcium 8.2 L (8.6-10.3) mg/dL Adrenal panel 09/30/17 Range/Units 01:10 Sodium 141 (136-145) mEq/L Potassium 3.1 L (3.5-5.1) mEq/L Chloride 110 H (98-107) mEq/L Carbon Dioxide 26 (23-29) mEq/L BUN 15 (8-23) mg/dL Creatinine 0.65 L (0.70-1.30) mg/dL Glucose 130 H (70-105) mg/dL Calcium 8.2 L (8.6-10.3) mg/dL Consult Discharge Plan - Plan Referrals: Darrin Cobos, CUTTING PRESSMAN [Primary Care Provider] -
[2017-09-30] MEDS: Budesonide/Formoterol 160/4.5 MDI IH SCH ×2 (07:59→20:39)
[2017-09-30] MEDS: Cyanocobalamin (B-12) 1,000 MCG TABLET PO SCH (08:10)
[2017-09-30] MEDS: Cholecalciferol (D-3) 1,000 UNIT TABLET PO SCH (08:11)
[2017-09-30] MEDS: Pregabalin 50 MG CAPSULE PO SCH ×2 (08:11→21:13)
[2017-09-30] MEDS: Multivit/Ca/Min/Fe/FA 1 TAB TABLET PO SCH (08:11)
[2017-09-30] MEDS ORDERED: [UNRECOGNIZED DRUG - OTHER] PO SCH (09:00)
[2017-09-30] MEDS ORDERED: (Glucosamine Hcl/Chondr Su A Na [Cvs Glucosamine-Chon PO SCH (09:00)
[2017-09-30] MEDS ORDERED: (Biotin [Biotin] 1 MG) PO SCH (09:00)
--- NOTE | 2017-09-30 14:30 | Internal Med Progress Note ---
Date of Encounter: 09/30/17 Time of Encounter: 14:27 - Assessment and plan (1) UTI (urinary tract infection) Current Visit: No Status: Inactive Assessment and plan: No signs or symptoms of sepsis at this moment. Continue Cipro Follow-up cultures Urology following, recommendations appreciated. Qualifiers: Urinary tract infection type: site unspecified Hematuria presence: with hematuria Qualified Code(s): N39.0 - Urinary tract infection, site not specified; R31.9 - Hematuria, unspecified (2) Right kidney stone Current Visit: No Status: Acute Assessment and plan: Management per Urology. Previous stent (placed 09/27) was removed today. (3) Chronic pain Current Visit: Yes Status: Acute Assessment and plan: Continue home medications Qualifiers: Qualified Code(s): G89.29 - Other chronic pain (4) DVT prophylaxis Current Visit: No Status: Acute Assessment and plan: Subcutaneous heparin - Time Spent With Patient Total time spent is greater than 50% in coordination of care (as documented) at patient's floor/unit and/or counseling patient: - Subjective Interval history: No complaints, no acute events. - Constitutional Vitals: Temp Pulse Resp BP Pulse Ox 98.1 F 70 16 124/75 95 09/30/17 11:52 09/30/17 11:52 09/30/17 11:52 09/30/17 11:52 09/30/17 11:52 General appearance: Present: A&O X 3, no acute distress Exam: Gen: NAD, AAOx3 CVS: RRR Lungs: CTAB GI: soft, nt/nd, normal bowel sounds Skin: warm, dry Internal Medicine: Result - Labs CBC & Chem 7: 09/30/17 01:10 09/30/17 01:10 Labs: Short CBC 09/30/17 Range/Units 01:10 WBC 15.4 H (4.3-11.1) K/mcL Hgb 12.6 L (12.9-16.9) g/dL Hct 38.3 (37.5-50.1) % Plt Count 148 (140-400) K/mcL Neutrophils # 13.0 H (1.6-8.9) K/mcL BMP 09/30/17 01:10 Sodium 141 Potassium 3.1 L Chloride 110 H Carbon Dioxide 26 BUN 15 Creatinine 0.65 L Glucose 130 H Calcium 8.2 L Cardiac Enzymes 09/29/17 09/30/17 09/30/17 Range/Units 18:47 01:10 06:33 Troponin I < 0.03 < 0.03 < 0.03 (< 0.04) ng/mL - Impressions Impressions Abdomen/Pelvis CT 09/29/17 14:24 IMPRESSION: 1. Compared with the previous evaluation there is now hydronephrosis in the right kidney possibly related to migration of the ureteric stent. The upper end of the stent appears to be in the lower aspect of the right renal pelvis however the lower end of the stent appears to be below the prostate in the urethra. Redemonstration of bilateral nephrolithiasis. 2. Mild ascites mostly in the pelvis. 3. Air in the biliary system likely related to biliary enteric anastomosis. D/ / 09/29/2017 17:16:57 Luiza Christine MD / lgray Interpreting Provider: Luiza Christine MD Consult Discharge Plan - Plan Referrals: Darrin Cobos, [employer] P[employer]OT [Primary Care Provider] -
[2017-09-30] MEDS: rOPINIRole 1 MG TABLET PO SCH (21:13)
[2017-10-01] MEDS: *HR* Morphine Sulfate SR (12 HR) 15 MG TABLET.ER PO SCH ×2 (03:18→10:12)
[2017-10-01] MEDS: *HR* Heparin 5,000 UNIT/ML VIAL SQ SCH (05:14)
[2017-10-01 05:38] LABS: Basophils % 0.2 %; Eosinophils # 0.1 K/mcL (0.0-0.6); Eosinophils % 1.4 %; Hematocrit 36.5 % (37.5-50.1); Hemoglobin 11.9 g/dL (12.9-16.9); Immature Granulocytes % 0.7 % (0-4); Lymphocytes # 1.1 K/mcL (0.6-4.6); Lymphocytes % 11.8 %; Mean Corpuscular HGB Conc 32.6 g/dL (31.6-35.5); Mean Corpuscular Hemoglobin 29.1 pg (28.0-33.3); Mean Corpuscular Volume 89.2 fL (83.0-100.0); Monocytes # 0.9 K/mcL (0.0-1.3); Monocytes % 9.6 %; Platelet Count 157 K/mcL (140-400); Red Blood Count 4.09 M/mcL (4.19-5.50); Red Cell Distribution Width 13.6 % (11.5-14.5); Segmented Neutrophils % 76.3 %
[2017-10-01 05:58] LABS: BUN/Creatinine Ratio 27 (6-26); Blood Urea Nitrogen 18 mg/dL (8-23); Calcium 8.3 mg/dL (8.6-10.3); Carbon Dioxide 25 mEq/L (23-29); Chloride 108 mEq/L (98-107); Glucose 209 mg/dL (70-105); Osmolality,Calculated 298 (280-300); Potassium 3.4 mEq/L (3.5-5.1); Sodium 140 mEq/L (136-145); eGFR For African Americans > 60 (> 60); eGFR For Non-African Americans > 60 (> 60)
--- NOTE | 2017-10-01 07:30 | Urology Progress Note ---
Date of Encounter: 10/01/17 Time of Encounter: 07:28 - Assessment and Plan (1) Right kidney stone Current Visit: No Status: Acute Assessment and plan: We reviewed the CT results. We will consider treatment of the stone at a later date. (2) UTI (urinary tract infection) Current Visit: No Status: Inactive Assessment and plan: Urine culture was mixed. His infection seems to be resolving. I recommend transitioning to oral ciprofloxacin upon discharge for a 2 week course. He can follow me as an outpatient with a KUB. Anticipate discharge home later today if okay by the hospitalist. Qualifiers: Urinary tract infection type: site unspecified Hematuria presence: with hematuria Qualified Code(s): N39.0 - Urinary tract infection, site not specified; R31.9 - Hematuria, unspecified Progress Note Narrative: Doing well today. He denies any fevers or chills overnight. Urine culture was mixed. He has been on ciprofloxacin. Objective Initial Vital Signs Temp Pulse Resp BP Pulse Ox 98.2 F 74 16 162/73 98 09/29/17 14:39 09/29/17 14:39 09/29/17 14:39 09/29/17 14:39 09/29/17 14:39 - General physical appearance Present: well developed, well nourished, no distress - Respiratory Present: normal respiratory effort - Abdomen Present: soft - Labs 10/01/17 05:14 10/01/17 05:14 Diabetes panel 10/01/17 Range/Units 05:14 Sodium 140 (136-145) mEq/L Potassium 3.4 L (3.5-5.1) mEq/L Chloride 108 H (98-107) mEq/L Carbon Dioxide 25 (23-29) mEq/L BUN 18 (8-23) mg/dL Creatinine 0.67 L (0.70-1.30) mg/dL Glucose 209 H (70-105) mg/dL Calcium 8.3 L (8.6-10.3) mg/dL Calcium panel 10/01/17 Range/Units 05:14 Calcium 8.3 L (8.6-10.3) mg/dL Pituitary panel 10/01/17 Range/Units 05:14 Sodium 140 (136-145) mEq/L Potassium 3.4 L (3.5-5.1) mEq/L Chloride 108 H (98-107) mEq/L Carbon Dioxide 25 (23-29) mEq/L BUN 18 (8-23) mg/dL Creatinine 0.67 L (0.70-1.30) mg/dL Glucose 209 H (70-105) mg/dL Calcium 8.3 L (8.6-10.3) mg/dL Adrenal panel 10/01/17 Range/Units 05:14 Sodium 140 (136-145) mEq/L Potassium 3.4 L (3.5-5.1) mEq/L Chloride 108 H (98-107) mEq/L Carbon Dioxide 25 (23-29) mEq/L BUN 18 (8-23) mg/dL Creatinine 0.67 L (0.70-1.30) mg/dL Glucose 209 H (70-105) mg/dL Calcium 8.3 L (8.6-10.3) mg/dL Consult Discharge Plan - Plan Referrals: Darrin Cobos, ART OBJECTS SALESPERSON [Primary Care Provider] -
[2017-10-01] MEDS: Budesonide/Formoterol 160/4.5 MDI IH SCH (07:44)
[2017-10-01] MEDS: Cholecalciferol (D-3) 1,000 UNIT TABLET PO SCH (10:10)
[2017-10-01] MEDS: Multivit/Ca/Min/Fe/FA 1 TAB TABLET PO SCH (10:10)
[2017-10-01] MEDS: Pregabalin 50 MG CAPSULE PO SCH (10:10)
[2017-10-01] MEDS: Cyanocobalamin (B-12) 1,000 MCG TABLET PO SCH (10:11)
[2017-10-01] MEDS: *HR* HYDROcodone/Acet 5/325 mg TABLET PO PRN (10:32)
[2017-10-01 10:33] VITALS: BP 138/75
--- NOTE | 2017-10-01 10:50 | Discharge Summary ---
- NOTES TO OUTPATIENT PROVIDER Notes to Outpatient Provider: Patient admitted with Right kidney stone and urinary tract infection. Treated with IV antibiotics. Urology evaluated the patient. Recommend discharge on oral antibiotics and outpatient follow-up regarding right sided kidney stone. Date of Encounter: 10/01/17 Time of Encounter: 10:40 - Discharge Diagnosis (1) UTI (urinary tract infection) Priority: Primary Status: Acute Qualifiers: Urinary tract infection type: site unspecified Hematuria presence: with hematuria Qualified Code(s): N39.0 - Urinary tract infection, site not specified; R31.9 - Hematuria, unspecified (2) DVT prophylaxis Priority: Secondary Status: Acute (3) Chronic pain Priority: Secondary Status: Acute Qualifiers: Chronic pain type: chronic pain syndrome Qualified Code(s): G89.4 - Chronic pain syndrome (4) Right kidney stone Priority: Secondary Status: Acute Hospital course: Mr. Hooper is a 62 year old male Patient with history of COPD, coronary artery disease, hypertension who was hospitalized here with bilateral nephrolithiasis right-sided hydronephrosis and migration of the ureteral stent and urinary tract infection. He was treated with IV antibiotics. Urology evaluated the patient. Stent was removed the next day. Since then patient is doing better. Urology has cleared him for discharge on oral antibiotics. He will follow up with urology as outpatient for further management. Discharge discussed with: patient, nurse - Time Spent with Patient Total time spent providing and/or coordinating discharge services: Less than 30 minutes (25 min) - Discharge Medications Prescriptions: Ciprofloxacin [Cipro] 500 mg PO BID #21 tablet Home Medications: Albuterol Sulfate [Ventolin Hfa] 2 puff IH Q4H PRN 08/30/17 [History] Biotin 1 mg PO DAILY 08/30/17 [History] Calcium Carbonate [Calcium] 500 mg PO DAILY 08/30/17 [History] Cholecalciferol (D-3) [Vitamin D] 5,000 unit PO DAILY 08/30/17 [History] Cyanocobalamin (Vitamin B-12) [Vitamin B-12] 250 mcg PO DAILY 08/30/17 [History] Ferrous Sulfate [Iron] 325 mg PO DAILY 08/30/17 [History] Fluticasone/Salmeterol [Advair 500-50 Diskus] 1 puff IH BID 08/30/17 [History] Glucosamine HCl/Chondr Jernigan A Na [Cvs Glucosamine-Chondr Tablet] 1 tab PO DAILY [History] Morphine Sulfate [Arymo ER] 15 mg PO Q8H 08/30/17 [History] Multivitamin [One Daily Multivitamin] 1 tab PO DAILY 08/30/17 [History] Panax Ginseng Root [[place] Ginseng] 1,000 mg PO DAILY 08/30/17 [History] Pregabalin [Lyrica] 200 mg PO BID 08/30/17 [History] Trazodone HCl 50 - 100 mg PO HS PRN 08/30/17 [History] Zolpidem [Ambien] 10 mg PO HS PRN 08/30/17 [History] rOPINIRole [Requip] 1 mg PO HS 08/30/17 [History] HYDROcodone/Acet 5/325 mg [[place] 5-325 mg] 1 tab PO Q6H PRN 3 Days #15 tablet [Rx] Meloxicam 15 mg PO DAILY 09/27/17 [History] Sumatriptan [Imitrex] 20 mg NS Q2H PRN 09/29/17 [History] Ciprofloxacin [Cipro] 500 mg PO BID #21 tablet 10/01/17 [Rx] Allergies/Adverse Reactions: 3 Allergy/AdvReac Type Severity Reaction Status Date / Time codeine Allergy Mild Hallucinati Verified 09/29/17 14:16 ng Amoxicillin [From Augmentin] Allergy UNKNOWN Verified 09/29/17 14:16 clavulanic acid Allergy UNKNOWN Verified 09/29/17 14:16 [From Augmentin] pioglitazone [From Actos] Allergy UNKNOWN Verified 09/29/17 14:16 Date of admission: 09/29/17 11:13 Primary care physician: Darrin Cobos CNP Consults: Urology Discharging clinician: Mayela Lora Anticipated date of discharge: 10/01/17 - Constitutional Vitals: Temp Pulse Resp BP Pulse Ox 98.0 F 69 18 138/75 97 10/01/17 10:30 10/01/17 10:30 10/01/17 10:30 10/01/17 10:30 10/01/17 10:30 General appearance: Present: A&O X 3, no acute distress, answers questions appropriately - Respiratory Respiratory exam: Present: CTAB. Absent: accessory muscle use, rales, rhonchi, wheezes - Cardiovascular Cardiovascular exam: Present: RRR, +S1, +S2. Absent: diastolic murmur, gallop, rubs, systolic murmur - GI/Abdominal GI/Abdominal exam: Present: normal bowel sounds, soft, no peritoneal signs. Absent: distended, tenderness - Extremities Exam Extremities exam: Present: warm, radial pulses palpable and symmetrical. Absent : calf tenderness, cyanotic, pedal edema - Patient Status Disposition: Home Health Service Condition: Good Functional capacity at discharge: independent ambulation Overall status at discharge: patient is progressing back to baseline - Discharge Instructions Instructions: Urinary Tract Infection in Men (DC) Follow Up With: Jeffery Aponte MD [Partnered Physician] - 10/23/17 3:00 pm - Diet and Activity Activity: increase activity as tolerated Diet: advance to your usual diet
--- NOTE | 2017-10-01 10:54 | Physician Discharge Referral ---
Home Health/Hosp Referral Info Transfer to: Home Health Provider in Charge Post Discharge: PCP - Diagnosis (1) UTI (urinary tract infection) Priority: Primary Status: Acute (2) DVT prophylaxis Priority: Secondary Status: Acute (3) Chronic pain Priority: Secondary Status: Acute (4) Right kidney stone Priority: Secondary Status: Acute - Respiratory Orders Smoking Cessation: Smoking cessation has been advised. For more information, call the [place] Tobacco Quit Line at 1-398-NSIM-NOW. - Diet/Nutrition Diet/Nutrition Orders: Cardiac - Activity Activity Orders: Walker - Services Needed Following services are medically necessary services: Nursing - Transfer Medications Home Medications: Albuterol Sulfate [Ventolin Hfa] 2 puff IH Q4H PRN 08/30/17 [History] Biotin 1 mg PO DAILY 08/30/17 [History] Calcium Carbonate [Calcium] 500 mg PO DAILY 08/30/17 [History] Cholecalciferol (D-3) [Vitamin D] 5,000 unit PO DAILY 08/30/17 [History] Cyanocobalamin (Vitamin B-12) [Vitamin B-12] 250 mcg PO DAILY 08/30/17 [History] Ferrous Sulfate [Iron] 325 mg PO DAILY 08/30/17 [History] Fluticasone/Salmeterol [Advair 500-50 Diskus] 1 puff IH BID 08/30/17 [History] Glucosamine HCl/Chondr Jernigan A Na [Cvs Glucosamine-Chondr Tablet] 1 tab PO DAILY [History] Morphine Sulfate [Arymo ER] 15 mg PO Q8H 08/30/17 [History] Multivitamin [One Daily Multivitamin] 1 tab PO DAILY 08/30/17 [History] Panax Ginseng Root [Icelandic Ginseng] 1,000 mg PO DAILY 08/30/17 [History] Pregabalin [Lyrica] 200 mg PO BID 08/30/17 [History] Trazodone HCl 50 - 100 mg PO HS PRN 08/30/17 [History] Zolpidem [Ambien] 10 mg PO HS PRN 08/30/17 [History] rOPINIRole [Requip] 1 mg PO HS 08/30/17 [History] HYDROcodone/Acet 5/325 mg [Dewitt 5-325 mg] 1 tab PO Q6H PRN 3 Days #15 tablet 04 /14/18 [Rx] Meloxicam 15 mg PO DAILY 09/27/17 [History] Sumatriptan [Imitrex] 20 mg NS Q2H PRN 09/29/17 [History] Allergies/Adverse Reactions: 3 Allergy/AdvReac Type Severity Reaction Status Date / Time codeine Allergy Mild Hallucinati Verified 09/29/17 14:16 ng Amoxicillin [From Augmentin] Allergy UNKNOWN Verified 09/29/17 14:16 clavulanic acid Allergy UNKNOWN Verified 09/29/17 14:16 [From Augmentin] pioglitazone [From Actos] Allergy UNKNOWN Verified 09/29/17 14:16 Certification: Further, I certify that my clinical findings support that this patient is homebound (i.e. absences from home require considerable and taxing effort and are for medical reasons or rastafari services or infrequently or short duration when for other reasons) because: Homebound Reason: Patient requires assistance of a person or device to safely leave home Attestation: My signature below is to certify that this patient is under my care and that I, or nurse practitioner, or a physician's loan assistant working with me, has a face-to -face encounter with this patient.
== END 2017-10-01 12:30 | disposition home health service (06) ==
LOC: 3ANU → SUATTDRO 11:13 → 3ANU 09-30 18:20
PROVIDERS: ADMIT Hospitalist; ATTEND Internal Medicine

== ENCOUNTER 2018-01-15 17:40 | Observation (INO) ==
[2018-01-15] MEDS ORDERED: Naloxone 0.4 MG/ML INJ IVP PRN (20:40)
--- NOTE | 2018-01-15 20:53 | Internal Med History&Physical ---
Date of Encounter: 01/15/18 Time of Encounter: 20:44 Internal Medicine - H&P: HPI Chief complaint: fever Admitted From: Hospital to Hospital Transfer Plans for Post Hospital Care: Home History of present illness: Mr. Hooper is a 62 year old male presented with chief complaint of fever to [facility] emergency department. He was then transferred to [place]. Patient reports that he started having fevers yesterday of 103 degrees along with left flank pain that was aching without radiation. Reports changes in urine odor and color (dark brown). He reports becoming confused as per his . Today he had an appointment Dr. Aponte, his urologist, as he has a history of kidney stones and has required multiple stents in the past/extraction procedures. Currently patient does not have any stents. In the past year he has had multiple UTIs. Patient had a right percutaneous nephrolithotomy on 08/30 and then underwent staged right ureteroscopy, laser lithotripsy, stent exchange on 09/27/2017. Thereafter his stent became infected and his stent was removed on 09/30/17. Since then patient had recurrent UTI on 12/28/17 with urine cultures growing Escherichia coli and an enterococcus species and he was treated with ciprofloxacin outpatient which he reports he finished his course of antibiotics. Past Med Surg Social Fam HX - Past Medical History Medical history: arthritis, CHF, COPD, coronary artery disease, hypertension, malignancy, migraine, peripheral artery disease, other Additional medical history: marfan's syndrome, cellulitis, pancreatic cancer Psychiatric history: anxiety, depression - Past Surgical History Surgical History: bariatric surgery, knee replacement, other Additional surgical history: LEFT FEMUR FX, steroid spinal injections, lithotripsy, whipple procedure, maddi-en-y gastric bypass - Social History Smoking Status: Former smoker Smokeless Tobacco Status: No Alcohol use: none Drug use: none - Family History Brother Living Status: Hx Family Cancer: Yes Father Living Status: Hx Family Cancer: Yes Internal Medicine - H&P: Meds RX: Albuterol Sulfate [Ventolin Hfa] 2 puff IH Q4H PRN 08/30/17 [History] RX: Biotin 1 mg PO DAILY 08/30/17 [History] RX: Calcium Carbonate [Calcium] 500 mg PO DAILY 08/30/17 [History] RX: Cholecalciferol (D-3) [Vitamin D] 5,000 unit PO DAILY 08/30/17 [History] RX: Cyanocobalamin (Vitamin B-12) [Vitamin B-12] 250 mcg PO DAILY 08/30/17 [ History] RX: Ferrous Sulfate [Iron] 325 mg PO DAILY 08/30/17 [History] RX: Fluticasone/Salmeterol [Advair 500-50 Diskus] 1 puff IH BID 08/30/17 [ History] RX: Glucosamine HCl/Chondr Jernigan A Na [Cvs Glucosamine-Chondr Tablet] 1 tab PO DAILY 08/30/17 [History] RX: Morphine Sulfate [Arymo ER] 15 mg PO Q8H 08/30/17 [History] RX: Multivitamin [One Daily Multivitamin] 1 tab PO DAILY 08/30/17 [History] RX: Panax Ginseng Root [Setswana Ginseng] 1,000 mg PO DAILY 08/30/17 [History] RX: Pregabalin [Lyrica] 200 mg PO BID 08/30/17 [History] RX: Trazodone HCl 50 - 100 mg PO HS PRN 08/30/17 [History] RX: Zolpidem [Ambien] 10 mg PO HS PRN 08/30/17 [History] RX: rOPINIRole [Requip] 1 mg PO HS 08/30/17 [History] RX: Sumatriptan [Imitrex] 20 mg NS Q2H PRN 09/29/17 [History] Meloxicam [Mobic] 15 mg PO DAILY 12/28/17 [History] 3 Allergy/AdvReac Type Severity Reaction Status Date / Time codeine Allergy Mild Hallucinati Verified 12/28/17 05:20 ng Amoxicillin [From Augmentin] Allergy UNKNOWN Verified 12/28/17 05:20 clavulanic acid Allergy UNKNOWN Verified 12/28/17 05:20 [From Augmentin] pioglitazone [From Actos] Allergy UNKNOWN Verified 12/28/17 05:20 All Systems PM: A 10-system review of systems was performed and is negative for pertinent findings except as documented above in the HPI. Review of systems: Constitutional: rePorts fever or chills HEENT: Denies headache, vision changes, neck pain, sore throat, rhinorrhea Heart: Denies chest pain palpitations Lungs: Denies shortness of breath cough Abdomen: Reports abdominal pain. Denies nausea, vomiting, diarrhea Back: Reports chronic back pain Kidney: Denies dysuria, hematuria. Reports changes in urine odor and color Skin: Denies rash, lesions Extremities: Denies swelling, pain Neuro: Denies numbness and tingling - Constitutional Vitals: Temp Pulse Resp BP Pulse Ox 98.9 F 68 16 125/53 95 01/15/18 20:17 01/15/18 20:17 01/15/18 20:17 01/15/18 20:17 01/15/18 20:17 Exam: General: Pleasant without distress HEENT: Head atraumatic, normocephalic, EOMI, PERRL, neck nontender to palpation , absent lymphadenopathy, Moist Mucous Membranes, Heart: Regular rate and rhythm with no murmur Lungs: Clear to auscultation bilaterally Abdomen: Soft nontender, nondistended positive bowel sounds Skin: warm and dry, absent rash. Multiple markings on his upper and lower extremity, signs of picking skin Extremities: Absent pedal edema, Neuro: Alert oriented 3 Vascular: Pedal and radial pulses 2 out of 4 - Assessment and plan (1) UTI (urinary tract infection) Current Visit: Yes Status: Acute Assessment and plan: 62-year-old male presents with chief complaint of fevers found to have UTI Patient was sent from his urologist's office due to fevers Urinalysis shows moderate urine blood, trace leukocyte esterase and elevated specific gravity. WBC within normal limits. Patient meet SIRS criteria for fever of 101.8. Lactic acid 1.0 CT abdomen pelvis shows stone in the lower pole of the right kidney measuring 9 x 10 mm that is stable. There is no evidence of obstructive uropathy. Patient has history of UTI Growing Escherichia coli and enterococcus. Pansensitive Urine cultures, blood culture drawn. We will start patient on ceftriaxone. Qualifiers: Urinary tract infection type: acute cystitis Hematuria presence: without hematuria Qualified Code(s): N30.00 - Acute cystitis without hematuria (2) Chronic pain Current Visit: Yes Status: Acute Assessment and plan: Patient has history of chronic pain which developed after he underwent Whipple' s procedure for pancreatic cancer in 2012. He reports chronic low back pain and abdominal pain. Outpatient he is on morphine, meloxicam. We will continue these medications. Qualifiers: Chronic pain type: chronic pain syndrome Qualified Code(s): G89.4 - Chronic pain syndrome (3) DVT prophylaxis Current Visit: Yes Status: Acute Assessment and plan: Heparin subcutaneous. - Time Spent With Patient Total time spent is greater than 50% in coordination of care (as documented) at patient's floor/unit and/or counseling patient:
[2018-01-15] MEDS: *HR* Morphine Immed Rel 30 MG TABLET PO SCH (21:46)
[2018-01-15] MEDS: Pregabalin 50 MG CAPSULE PO SCH (21:47)
[2018-01-15] MEDS: rOPINIRole 1 MG TABLET PO SCH (21:47)
[2018-01-16] MEDS: *HR* Heparin 5,000 UNIT/ML VIAL SQ SCH ×4 (00:50→21:45)
[2018-01-16] MEDS ORDERED: OXYCODONE Oral CONC 10 MG/0.5 ML ORAL.SYG SL ONE (04:51)
[2018-01-16 05:02] LABS: Basophils % 0.6 %; Eosinophils % 0.2 %; Hematocrit 41.8 % (37.5-50.1); Hemoglobin 13.7 g/dL (12.9-16.9); Immature Granulocytes % 0.6 % (0-4); Lymphocytes # 0.6 K/mcL (0.6-4.6); Lymphocytes % 11.5 %; Mean Corpuscular HGB Conc 32.8 g/dL (31.6-35.5); Mean Corpuscular Hemoglobin 28.7 pg (28.0-33.3); Mean Corpuscular Volume 87.6 fL (83.0-100.0); Mean Platelet Volume 11.1 fL (9.4-12.4); Monocytes # 0.5 K/mcL (0.0-1.3); Monocytes % 9.9 %; Neutrophils # 3.8 K/mcL (1.6-8.9); Platelet Count 126 K/mcL (140-400); Red Blood Count 4.77 M/mcL (4.19-5.50); Red Cell Distribution Width 14.4 % (11.5-14.5); Segmented Neutrophils % 77.2 %
[2018-01-16 05:20] LABS: BUN/Creatinine Ratio 24 (6-26); Blood Urea Nitrogen 16 mg/dL (8-23); Calcium 8.5 mg/dL (8.6-10.3); Carbon Dioxide 26 mEq/L (23-29); Chloride 113 mEq/L (98-107); Glucose 95 mg/dL (70-105); Osmolality,Calculated 293 (280-300); Sodium 141 mEq/L (136-145); eGFR For Non-African Americans > 60 (> 60)
[2018-01-16] MEDS ORDERED: Naloxone 0.4 MG/ML INJ IVP PRN (08:11)
--- NOTE | 2018-01-16 08:34 | Urology - Consult Note ---
<Julita Castrejon N - Last Filed: 01/16/18 08:29> Date of Encounter: 01/16/18 Time of Encounter: 08:29 - Assessment and Plan (1) UTI (urinary tract infection) Current Visit: Yes Status: Acute Assessment and plan: Patient is a 62 year old male who presents with a urinary tract infection. Patient has remained afebrile overnight and vital signs remain stable. CT scan reveals nephrolithiasis but no obstructing ureteral stones. Patient is inquiring about discharge, as he reports feeling much better. Patient has been placed on IV Rocephin while blood and urine cultures are pending. Will plan follow up with Dr. Aponte as an outpatient. Qualifiers: Urinary tract infection type: acute cystitis Hematuria presence: without hematuria Qualified Code(s): N30.00 - Acute cystitis without hematuria Urology CN:HPI Consult date: 01/16/18 Reason for consult Urology: Other (Urinary tract infection) History of present illness: Patient is a 62 year old male who presents with fever and darkened, malodorous urine to the Emergency Department. Patient was seen 01/15/[address] Aponte in [place] and found to have a 103.2 degree fever. Patient has been treated for recurrent sensitive urinary tract infections culture positive for E.Coli and Enterococci. Patient has undergone multiple stone extractions, stent placment and exchange, as well as a PCNL in August 2017. Patient reports experiencing more frequent infections since the PCNL procedure in August. At present, patient is feeling much better and denies dysuria, hematuria, fever, chills, flank pain. Past Med Surg Social Fam HX - Past Medical History Medical history: arthritis, CHF, COPD, coronary artery disease, hypertension, malignancy, migraine, peripheral artery disease, other Additional medical history: marfan's syndrome, cellulitis, pancreatic cancer Psychiatric history: anxiety, depression - Past Surgical History Surgical History: bariatric surgery, knee replacement, other Additional surgical history: LEFT FEMUR FX, steroid spinal injections, lithotripsy, whipple procedure, maddi-en-y gastric bypass - Social History Smoking Status: Former smoker Smokeless Tobacco Status: No Alcohol use: none Drug use: none - Family History Brother Living Status: Hx Family Cancer: Yes Father Living Status: Hx Family Cancer: Yes Medications and Allergies Albuterol Sulfate [Ventolin Hfa] 2 puff IH Q4H PRN 08/30/17 [History] Ferrous Sulfate [Iron] 325 mg PO DAILY 08/30/17 [History] Fluticasone/Salmeterol [Advair 500-50 Diskus] 1 puff IH BID 08/30/17 [History] Trazodone HCl 50 - 100 mg PO HS PRN 08/30/17 [History] Zolpidem [Ambien] 10 mg PO HS PRN 08/30/17 [History] rOPINIRole [Requip] 1 mg PO HS 08/30/17 [History] Sumatriptan [Imitrex] 20 mg NS Q2H PRN 09/29/17 [History] Meloxicam [Mobic] 15 mg PO DAILY 12/28/17 [History] Morphine Immed Rel [Morphine Sulfate] 15 mg PO Q8H 01/15/18 [History] HYDROcodone/Acet 5/325 mg [Pollock 5-325 mg] 1 tab PO Q6H 01/16/18 [History] Pregabalin [Lyrica] 150 mg PO TID 01/16/18 [History] 3 Allergy/AdvReac Type Severity Reaction Status Date / Time Amoxicillin [From Augmentin] Allergy UNKNOWN Verified 01/16/18 08:46 clavulanic acid Allergy UNKNOWN Verified 01/16/18 08:46 [From Augmentin] pioglitazone [From Actos] Allergy UNKNOWN Verified 01/16/18 08:46 codeine AdvReac Mild Hallucinati Verified 01/16/18 08:46 ng Review of Systems - Constitutional no chills, no fatigue, no weakness - EENT Nose, mouth and throat: no dizziness, no headache(s) - Cardiovascular no chest pain, no dyspnea - Respiratory no cough, no dyspnea - Gastrointestinal no abdominal pain, no nausea, no vomiting - Genitourinary no dysuria, no flank pain, no hematuria, no testicular pain, no urinary frequency, no urinary hesitancy, no urinary incontinence, no urinary urgency - Musculoskeletal no back pain, no muscle weakness - Integumentary no erythema, no swelling - Neurological no confusion, no syncope, no weakness - Psychiatric no anxiety, no confusion Exam Initial Vital Signs Temp Pulse Resp BP Pulse Ox 98.9 F 68 16 125/53 95 01/15/18 20:17 01/15/18 20:17 01/15/18 20:17 01/15/18 20:17 01/15/18 20:17 - General physical appearance Present: well developed, no distress, no pain - Eyes Present: PERRL, normal ocular movement - ENT Present: no hearing loss, no congestion - Neck Present: no masses, trachea midline - Respiratory Present: normal respiratory effort - Cardiovascular Cardiovascular exam IM: RRR - Abdomen Abdomen: Present: soft, non tender. Absent: distended - Integumentary Present: no rash, no abnormal pigmentation - Neurologic Present: normal coordination. Absent: disoriented, confused Urology Results - Labs 01/16/18 04:42 01/16/18 04:42 Abnormal lab results Plt Count 126 K/mcL (140-400) L 01/16/18 04:42 Chloride 113 mEq/L (98-107) H 01/16/18 04:42 Creatinine 0.68 mg/dL (0.70-1.30) L 01/16/18 04:42 Calcium 8.5 mg/dL (8.6-10.3) L 01/16/18 04:42 Diabetes panel 01/16/18 Range/Units 04:42 Sodium 141 (136-145) mEq/L Potassium 4.0 (3.5-5.1) mEq/L Chloride 113 H (98-107) mEq/L Carbon Dioxide 26 (23-29) mEq/L BUN 16 (8-23) mg/dL Creatinine 0.68 L (0.70-1.30) mg/dL Glucose 95 (70-105) mg/dL Calcium 8.5 L (8.6-10.3) mg/dL Calcium panel 01/16/18 Range/Units 04:42 Calcium 8.5 L (8.6-10.3) mg/dL Pituitary panel 01/16/18 Range/Units 04:42 Sodium 141 (136-145) mEq/L Potassium 4.0 (3.5-5.1) mEq/L Chloride 113 H (98-107) mEq/L Carbon Dioxide 26 (23-29) mEq/L BUN 16 (8-23) mg/dL Creatinine 0.68 L (0.70-1.30) mg/dL Glucose 95 (70-105) mg/dL Calcium 8.5 L (8.6-10.3) mg/dL Adrenal panel 01/16/18 Range/Units 04:42 Sodium 141 (136-145) mEq/L Potassium 4.0 (3.5-5.1) mEq/L Chloride 113 H (98-107) mEq/L Carbon Dioxide 26 (23-29) mEq/L BUN 16 (8-23) mg/dL Creatinine 0.68 L (0.70-1.30) mg/dL Glucose 95 (70-105) mg/dL Calcium 8.5 L (8.6-10.3) mg/dL All other labs normal. - Imaging CT scan - abdomen: report reviewed, image reviewed CT scan - pelvis: report reviewed, image reviewed Consult Discharge Plan - Plan Referrals: Darrin Cobos, [employer]TER [Primary Care Provider] - <Santi Ng - Last Filed: 01/17/18 07:11> Date of Encounter: 01/17/18 - Assessment and Plan (1) UTI (urinary tract infection) Current Visit: Yes Status: Acute Assessment and plan: Patient was seen and examined with Julita Castrejon. Patient feels good at this time. labs stable. Ok for discharge tomorrow if patient remains afebrile. Qualifiers: Urinary tract infection type: acute cystitis Hematuria presence: without hematuria Qualified Code(s): N30.00 - Acute cystitis without hematuria Exam Initial Vital Signs Temp Pulse Resp BP Pulse Ox 98.9 F 68 16 125/53 95 01/15/18 20:17 01/15/18 20:17 01/15/18 20:17 01/15/18 20:17 01/15/18 20:17 Urology Results - Labs 01/16/18 04:42 01/16/18 04:42 Abnormal lab results Plt Count 126 K/mcL (140-400) L 01/16/18 04:42 Chloride 113 mEq/L (98-107) H 01/16/18 04:42 Creatinine 0.68 mg/dL (0.70-1.30) L 01/16/18 04:42 Calcium 8.5 mg/dL (8.6-10.3) L 01/16/18 04:42 Diabetes panel 01/16/18 Range/Units 04:42 Sodium 141 (136-145) mEq/L Potassium 4.0 (3.5-5.1) mEq/L Chloride 113 H (98-107) mEq/L Carbon Dioxide 26 (23-29) mEq/L BUN 16 (8-23) mg/dL Creatinine 0.68 L (0.70-1.30) mg/dL Glucose 95 (70-105) mg/dL Calcium 8.5 L (8.6-10.3) mg/dL Calcium panel 01/16/18 Range/Units 04:42 Calcium 8.5 L (8.6-10.3) mg/dL Pituitary panel 01/16/18 Range/Units 04:42 Sodium 141 (136-145) mEq/L Potassium 4.0 (3.5-5.1) mEq/L Chloride 113 H (98-107) mEq/L Carbon Dioxide 26 (23-29) mEq/L BUN 16 (8-23) mg/dL Creatinine 0.68 L (0.70-1.30) mg/dL Glucose 95 (70-105) mg/dL Calcium 8.5 L (8.6-10.3) mg/dL Adrenal panel 01/16/18 Range/Units 04:42 Sodium 141 (136-145) mEq/L Potassium 4.0 (3.5-5.1) mEq/L Chloride 113 H (98-107) mEq/L Carbon Dioxide 26 (23-29) mEq/L BUN 16 (8-23) mg/dL Creatinine 0.68 L (0.70-1.30) mg/dL Glucose 95 (70-105) mg/dL Calcium 8.5 L (8.6-10.3) mg/dL All other labs normal.
[2018-01-16] MEDS: Pregabalin 50 MG CAPSULE PO SCH ×2 (10:31→21:46)
[2018-01-16] MEDS: *HR* Morphine Immed Rel 30 MG TABLET PO SCH ×3 (10:31→17:50)
[2018-01-16] MEDS: *HR* OxyCODONE Immed Rel 5 MG TABLET PO PRN ×2 (14:15→21:45)
[2018-01-16] MEDS ORDERED: traZODone 50 MG TABLET PO PRN (16:35)
--- NOTE | 2018-01-16 16:35 | Internal Med Progress Note ---
Hospitalist Progress Note - Encounter Date of Encounter: 01/16/18 Time of Encounter: 12:00 - Subjective Interval History: H&P reviewed. Patient with recurrent UTI presented with fever and left flank pain. Temperature 101.8 at 3 PM yesterday. Was started on IV Rocephin with symptomatic improvement. Currently feels much better, no more fever, N/V. - Exam Vitals: Temp Pulse Resp BP Pulse Ox 98.2 F 79 14 151/71 92 01/16/18 13:54 01/16/18 13:54 01/16/18 13:54 01/16/18 13:54 01/16/18 13:54 Exam: General: Alert and oriented, not in acute distress. Cardiovascular:Normal S1 & S2, No JVD. Pulse regular. Lungs: clear to auscultation, no wheezes/rales Abdomen:Soft, non-tender, no rigidity. No CVA tenderness Extremities:No deformity or swelling Neurological:Normal cognition and motor skills. Non-focal - Assessment and Plan (1) UTI (urinary tract infection) Current Visit: Yes Status: Acute Assessment and Plan: History of recurrent UTI, follows with Urology as an outpatient and was sent from his urologist's office due to fevers last night Urinalysis shows moderate blood, trace leukocyte esterase and elevated specific gravity. WBC within normal limits. 1/4 SIRS criteria for fever of 101.8. Normal BP, WBC, and respiratory rate CT abdomen pelvis shows bilateral nonobstructive nephrolithiasis without any evidence of obstructive uropathy. Previous urine culture +ve for Escherichia coli and enterococcus. Sensitive to ampicillin but patient is allergic to Augmentin Symptomatically improving on IV ROcephin -> will switch to PO Cefdinir tomorrow and d/c home after he remains afebrile > 24-36 hours Follow up on urine cultures, blood cultures (2) Chronic pain Current Visit: Yes Status: Acute Assessment and Plan: Patient has history of chronic pain which developed after he underwent Whipple' s procedure for pancreatic cancer in 2012. He reports chronic low back pain and abdominal pain. Continue home meds and add when necessary sublingual Roxicodone for breakthrough pain (3) COPD (chronic obstructive pulmonary disease) Current Visit: No Status: Chronic Assessment and Plan: Not in exacerbation Resume home inhalers (4) DVT prophylaxis Current Visit: Yes Status: Acute Assessment and Plan: Heparin subcutaneous. - Time Spent with Patient Total time spent is greater than 50% in coordination of care (as documented) at patient's floor/unit and/or counseling patient: Plan of Care Discussed with: patient Internal Medicine: Result - Labs CBC & Chem 7: 01/16/18 04:42 01/16/18 04:42 Labs: Short CBC 01/16/18 Range/Units 04:42 WBC 4.9 (4.3-11.1) K/mcL Hgb 13.7 (12.9-16.9) g/dL Hct 41.8 (37.5-50.1) % Plt Count 126 L (140-400) K/mcL Neutrophils # 3.8 (1.6-8.9) K/mcL BMP 01/16/18 04:42 Sodium 141 Potassium 4.0 Chloride 113 H Carbon Dioxide 26 BUN 16 Creatinine 0.68 L Glucose 95 Calcium 8.5 L Consult Discharge Plan - Plan Referrals: Darrin Cobos, [employer] [Primary Care Provider] - (1) UTI (urinary tract infection) Qualifiers: Urinary tract infection type: acute cystitis Hematuria presence: without hematuria Qualified Code(s): N30.00 - Acute cystitis without hematuria (2) Chronic pain Qualifiers: Chronic pain type: chronic pain syndrome Qualified Code(s): G89.4 - Chronic pain syndrome (3) COPD (chronic obstructive pulmonary disease) Qualifiers: COPD type: unspecified COPD Qualified Code(s): J44.9 - Chronic obstructive pulmonary disease, unspecified
[2018-01-16] MEDS ORDERED: cefTRIAXone 2,000 MG in Water for inj. (sterile) 20 ML 20 ML IVP SCH (17:00)
[2018-01-16] MEDS: Budesonide/Formoterol 160/4.5 1 PUFF INH IH SCH (20:12)
[2018-01-16] MEDS: rOPINIRole 1 MG TABLET PO SCH (21:45)
[2018-01-17] MEDS: *HR* Morphine Immed Rel 30 MG TABLET PO SCH ×2 (00:45→10:10)
[2018-01-17] MEDS: *HR* Heparin 5,000 UNIT/ML VIAL SQ SCH (06:24)
[2018-01-17 06:46] VITALS: BP 119/68
[2018-01-17] MEDS: Budesonide/Formoterol 160/4.5 1 PUFF INH IH SCH (08:10)
--- NOTE | 2018-01-17 08:51 | Discharge Summary ---
- NOTES TO OUTPATIENT PROVIDER Notes to Outpatient Provider: Patient with history of recurrent UTI presented with fever and left flank pain, failed outpatient therapy. Improved with IV Rocephin for 2 days. Urine culture and blood cultures pending at the time of the discharge but based on previous culture results and his clinical improvement on IV rocephin, he is discharged with PO Cefdinir for 12 more days with Urology follow up Date of Encounter: 01/17/18 Time of Encounter: 08:30 - Discharge Diagnosis (1) UTI (urinary tract infection) Priority: Primary Status: Acute Qualifiers: Urinary tract infection type: acute cystitis Hematuria presence: without hematuria Qualified Code(s): N30.00 - Acute cystitis without hematuria (2) Chronic pain Priority: Secondary Status: Acute Qualifiers: Chronic pain type: chronic pain syndrome Qualified Code(s): G89.4 - Chronic pain syndrome (3) COPD (chronic obstructive pulmonary disease) Priority: Secondary Status: Chronic Qualifiers: COPD type: unspecified COPD Qualified Code(s): J44.9 - Chronic obstructive pulmonary disease, unspecified (4) DVT prophylaxis Priority: Secondary Status: Acute Hospital course: Mr. Hooper is a 62 year old male with history of recurrent UTI presented with fever and left flank pain, failed outpatient therapy. Improved with IV Rocephin for 2 days. Urine culture and blood cultures pending at the time of the discharge but based on previous culture results and his clinical improvement on IV rocephin, he is discharged with PO Cefdinir for 12 more days with Urology follow up Discharge discussed with: patient - Time Spent with Patient Total time spent providing and/or coordinating discharge services: Greater than 30 minutes - Discharge Medications Prescriptions: Cefdinir [Omnicef] 300 mg PO BID 12 Days #24 capsule Home Medications: Albuterol Sulfate [Ventolin Hfa] 2 puff IH Q4H PRN 08/30/17 [History] Ferrous Sulfate [Iron] 325 mg PO DAILY 08/30/17 [History] Fluticasone/Salmeterol [Advair 500-50 Diskus] 1 puff IH BID 08/30/17 [History] Trazodone HCl 50 - 100 mg PO HS PRN 08/30/17 [History] Zolpidem [Ambien] 10 mg PO HS PRN 08/30/17 [History] rOPINIRole [Requip] 1 mg PO HS 08/30/17 [History] Sumatriptan [Imitrex] 20 mg NS Q2H PRN 09/29/17 [History] Meloxicam [Mobic] 15 mg PO DAILY 12/28/17 [History] Morphine Immed Rel [Morphine Sulfate] 15 mg PO Q8H 01/15/18 [History] HYDROcodone/Acet 5/325 mg [Lindon 5-325 mg] 1 tab PO Q6H 01/16/18 [History] Pregabalin [Lyrica] 150 mg PO TID 01/16/18 [History] Cefdinir [Omnicef] 300 mg PO BID 12 Days #24 capsule 01/17/18 [Rx] Allergies/Adverse Reactions: 3 Allergy/AdvReac Type Severity Reaction Status Date / Time Amoxicillin [From Augmentin] Allergy UNKNOWN Verified 01/16/18 08:46 clavulanic acid Allergy UNKNOWN Verified 01/16/18 08:46 [From Augmentin] pioglitazone [From Actos] Allergy UNKNOWN Verified 01/16/18 08:46 codeine AdvReac Mild Hallucinati Verified 01/16/18 08:46 ng Date of admission: 01/15/18 19:38 Primary care physician: Darrin Cobos CNP Consults: 01/15/18 21:21 Consult to Urology [CONS] Routine Consulting Provider: Urology Madeline Reason for Consult: patient sent for Dr. Aponte for fevers, flank pain. Has UTI. 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 Cardiovascular:Normal S1 & S2, No JVD. Pulse regular. Lungs: clear to auscultation, no wheezes/rales Abdomen:Soft, non-tender, no rigidity. No CVA tenderness Extremities:No deformity or swelling Neurological:Normal cognition and motor skills. Non-focal - Patient Status Disposition: Home, Self-Care Condition: Fair Overall status at discharge: patient is progressing back to baseline - Discharge Instructions Instructions: Urinary Tract Infection in Men (DC), Chronic Obstructive Pulmonary Disease (DC) Follow Up With: Darrin Cobos [employer]ING [employer]PERATIONS MANAGER [Primary Care Provider] - - Diet and Activity Activity: resume usual activities as tolerated Diet: advance to your usual diet
[2018-01-17] MEDS: Pregabalin 50 MG CAPSULE PO SCH (10:10)
--- NOTE | 2018-01-17 11:14 | Urology Progress Note ---
Date of Encounter: 01/17/18 Time of Encounter: 11:13 - Assessment and Plan (1) UTI (urinary tract infection) Current Visit: Yes Status: Acute Assessment and plan: voiding well. no signs of infection. ok to dc from urology standpoint. ok to fu with Dr. Aponte in next 3-4 weeks. Qualifiers: Urinary tract infection type: acute cystitis Hematuria presence: without hematuria Qualified Code(s): N30.00 - Acute cystitis without hematuria Progress Note Narrative: Patient seen. feeling great. no pain. Objective Initial Vital Signs Temp Pulse Resp BP Pulse Ox 98.9 F 68 16 125/53 95 01/15/18 20:17 01/15/18 20:17 01/15/18 20:17 01/15/18 20:17 01/15/18 20:17 - General physical appearance Present: well developed, well nourished - Respiratory Present: normal expansion, normal respiratory effort - Abdomen Present: soft. Absent: tender - Labs 01/16/18 04:42 01/16/18 04:42 Consult Discharge Plan - Plan Instructions: Urinary Tract Infection in Men (DC), Chronic Obstructive Pulmonary Disease (DC) Referrals: Jeffery Aponte MD [Partnered Physician] - 02/04/18 10:30 am Darrin Cobos CNP [Primary Care Provider] - 01/27/18 11:20 am Prescriptions: Cefdinir [Omnicef] 300 mg PO BID 12 Days #24 capsule
== END 2018-01-17 11:28 | disposition home or self-care (01) ==
LOC: 3ANU → SUATTDRO 19:38
PROVIDERS: ADMIT Internal Medicine; ATTEND Internal Medicine

== ENCOUNTER 2019-10-01 07:20 | Inpatient (IN) ==
[2019-10-01] MEDS ORDERED: *HR* HYDROmorphone (PF) 1 MG/ML SYRINGE IVP ONE (07:41)
[2019-10-01 08:10] LABS: Basophils % 0.2 %; Eosinophils % 0.2 %; Hematocrit 44.4 % (37.5-50.1); Hemoglobin 14.8 g/dL (12.9-16.9); Immature Granulocytes % 0.4 % (0-4); Lymphocytes # 0.6 K/mcL (0.6-4.6); Lymphocytes % 6.2 %; Mean Corpuscular HGB Conc 33.3 g/dL (31.6-35.5); Mean Corpuscular Hemoglobin 29.7 pg (28.0-33.3); Mean Corpuscular Volume 89.2 fL (83.0-100.0); Mean Platelet Volume 11.5 fL (9.4-12.4); Monocytes % 10.9 %; Neutrophils # 7.6 K/mcL (1.6-8.9); Platelet Count 147 K/mcL (140-400); Red Blood Count 4.98 M/mcL (4.19-5.50); Red Cell Distribution Width 13.5 % (11.5-14.5); Segmented Neutrophils % 82.1 %; White Blood Count 9.2 K/mcL (4.3-11.1)
[2019-10-01 08:15] LABS: INR 1.2; Prothrombin Time 13.9 Seconds (9.4-12.1)
[2019-10-01 08:18] LABS: Activated Partial Thrombo Time 37.5 Seconds (26.0-36.0)
[2019-10-01 08:26] LABS: Bilirubin,Urine Moderate (Negative); Blood,Urine Large (Negative); Clarity,Urine Turbid (Clear); Glucose,Urine (UA) Normal (Normal); Ketones,Urine 15 mg/dL (Negative); Leukocyte Esterase,Urine Moderate (Negative); Nitrite,Urine Negative (Negative); Protein,Urine 100 mg/dL (Neg-Trace); Specific Gravity,Urine 1.025 (1.010-1.025); Urobilinogen,Urine Normal (Normal)
[2019-10-01 08:29] LABS: Bacteria,Urine Many per hpf (None-Few); Hyaline Casts,Urine Few per lpf (None-Few); RBC,Urine TNTC per hpf (0-3); Squamous Epithelial Cell,Urine None Seen per lpf (None-Few); WBC,Urine 50-100 per hpf (0-3)
[2019-10-01 08:32] LABS: Color,Urine Amber (Yellow)
[2019-10-01 08:33] LABS: Alanine Aminotransferase 55 Units/L (7-52); Albumin 3.4 g/dL (3.5-5.7); Albumin/Globulin Ratio 1.7 (1.1-2.2); Alkaline Phosphatase 365 Units/L (34-104); Aspartate Amino Transferase 48 Units/L (13-39); BUN/Creatinine Ratio 24 (6-26); Bilirubin,Direct 0.5 mg/dL (0.0-0.2); Bilirubin,Indirect 0.7 mg/dL (0.0-1.0); Bilirubin,Total 1.2 mg/dL (0.3-1.0); Blood Urea Nitrogen 15 mg/dL (8-23); Calcium 8.3 mg/dL (8.6-10.3); Carbon Dioxide 32 mEq/L (23-29); Chloride 102 mEq/L (98-107); Glucose 132 mg/dL (70-105); Osmolality,Calculated 291 (280-300); Potassium 2.8 mEq/L (3.5-5.1); Sodium 139 mEq/L (136-145); Total Protein 5.4 g/dL (6.4-8.9); Troponin I 0.03 ng/mL (< 0.04); eGFR For African Americans > 60 (> 60); eGFR For Non-African Americans > 60 (> 60)
[2019-10-01] MEDS ORDERED: Potassium Chloride Elixir 20 MEQ/15 ML UDC PO ONE (08:40)
[2019-10-01] MEDS ORDERED: 0.9 % Sodium Chloride 500 ML IVC ONE (09:10)
[2019-10-01] MEDS ORDERED: cefTRIAXone 1,000 MG in Water for inj. (sterile) 10 ML IVP ONE (09:13)
[2019-10-01] MEDS ORDERED: Ondansetron 4 MG/2 ML VIAL IVP PRN (09:27)
[2019-10-01] MEDS ORDERED: Naloxone 0.4 MG/ML INJ IVP PRN (09:27)
[2019-10-01] MEDS ORDERED: 0.9 % Sodium Chloride w KCl 20 MEQ/1,000 ML MLS IVC SCH (09:30)
[2019-10-01] MEDS ORDERED: Vancomycin 1,500 MG/265 ML IV.SOLN IVPB ONE (10:00)
[2019-10-01] MEDS ORDERED: Vancomycin 1,250 MG/262.5 ML IV.SOLN IVPB ONE (10:00)
[2019-10-01] MEDS ORDERED: (Colestipol Hcl [Colestid] 1 GM) PO PRN (10:24)
[2019-10-01] MEDS: *HR* HYDROcodone/Acet 5/325 mg TABLET PO SCH ×3 (12:08→23:38)
[2019-10-01] MEDS: Pregabalin 75 MG CAPSULE PO SCH ×3 (14:01→21:29)
[2019-10-01] MEDS: Morphine Sulfate Immed Rel 15 MG TABLET PO SCH ×2 (14:02→23:39)
[2019-10-01] MEDS: 0.9 % Sodium Chloride w KCl 20 MEQ/1,000 ML MLS IVC SCH ×2 (14:06→23:40)
[2019-10-01] MEDS: CREON 24,000 UNITS PO SCH (17:51)
[2019-10-01] MEDS: *HR* Heparin 5,000 UNIT/ML VIAL SQ SCH (17:51)
[2019-10-01] MEDS ORDERED: CREON 24,000 UNITS PO PRN (21:00)
[2019-10-01] MEDS: Budesonide/Formoterol 160/4.5 1 PUFF INH IH SCH (21:34)
[2019-10-01] MEDS: Vancomycin 1,250 MG/262.5 ML IV.SOLN IVPB SCH (23:40)
[2019-10-02 02:32] LABS: BUN/Creatinine Ratio 19 (6-26); Blood Urea Nitrogen 12 mg/dL (8-23); Calcium 7.7 mg/dL (8.6-10.3); Carbon Dioxide 33 mEq/L (23-29); Chloride 107 mEq/L (98-107); Glucose 93 mg/dL (70-105); Magnesium 1.5 mg/dL (1.6-2.6); Osmolality,Calculated 295 (280-300); Phosphorous 1.2 mg/dL (2.7-4.5); Potassium 3.2 mEq/L (3.5-5.1); Sodium 143 mEq/L (136-145); eGFR For African Americans > 60 (> 60); eGFR For Non-African Americans > 60 (> 60)
[2019-10-02 02:42] LABS: Basophils % 0.3 %; Eosinophils # 0.1 K/mcL (0.0-0.6); Hematocrit 43.3 % (37.5-50.1); Hemoglobin 13.7 g/dL (12.9-16.9); Immature Granulocytes % 0.5 % (0-4); Immature Platelets 8.4 % (1.1-6.1); Lymphocytes # 0.8 K/mcL (0.6-4.6); Lymphocytes % 11.7 %; Mean Corpuscular HGB Conc 31.6 g/dL (31.6-35.5); Mean Corpuscular Hemoglobin 29.8 pg (28.0-33.3); Mean Corpuscular Volume 94.1 fL (83.0-100.0); Mean Platelet Volume 12.1 fL (9.4-12.4); Monocytes # 0.8 K/mcL (0.0-1.3); Monocytes % 12.5 %; Neutrophils # 4.7 K/mcL (1.6-8.9); Platelet Count 137 K/mcL (140-400); Red Cell Distribution Width 13.7 % (11.5-14.5); White Blood Count 6.5 K/mcL (4.3-11.1)
[2019-10-02] MEDS: *HR* HYDROcodone/Acet 5/325 mg TABLET PO SCH ×3 (05:51→17:48)
[2019-10-02] MEDS: *HR* Heparin 5,000 UNIT/ML VIAL SQ SCH ×2 (05:52→17:49)
[2019-10-02] MEDS: Pregabalin 75 MG CAPSULE PO SCH ×3 (08:16→20:54)
[2019-10-02] MEDS: Morphine Sulfate Immed Rel 15 MG TABLET PO SCH ×2 (08:17→15:48)
[2019-10-02] MEDS: CREON 24,000 UNITS PO SCH ×3 (08:18→15:49)
[2019-10-02] MEDS: cefTRIAXone 2,000 MG in Water for inj. (sterile) 20 ML IVP SCH (08:23)
[2019-10-02] MEDS ORDERED: Potassium Phosphate 44 MEQ in 0.9 % Sodium Chloride 250 ML IVPB ONE (09:01)
[2019-10-02] MEDS ORDERED: NON-FORMULARY MEDICATION 1 EACH EACH (Lipase/Protease/Amylase [Creon Dr 24,000 Units Capsu PO SCH ×2 (09:15→12:00)
[2019-10-02] MEDS: amLODIPine 5 MG TABLET PO SCH (10:09)
[2019-10-02] MEDS: Vancomycin 1,250 MG/262.5 ML IV.SOLN IVPB SCH ×2 (10:11→23:51)
[2019-10-02] MEDS: Budesonide/Formoterol 160/4.5 1 PUFF INH IH SCH ×2 (10:34→20:37)
[2019-10-03] MEDS: *HR* HYDROcodone/Acet 5/325 mg TABLET PO SCH ×4 (00:25→17:48)
[2019-10-03] MEDS: Morphine Sulfate Immed Rel 15 MG TABLET PO SCH ×3 (00:25→15:58)
[2019-10-03] MEDS: Vancomycin 1,500 MG/265 ML IV.SOLN IVPB SCH ×2 (01:04→11:54)
[2019-10-03] MEDS: *HR* Heparin 5,000 UNIT/ML VIAL SQ SCH ×2 (06:05→17:48)
[2019-10-03 06:42] LABS: BUN/Creatinine Ratio 18 (6-26); Blood Urea Nitrogen 13 mg/dL (8-23); Calcium 7.7 mg/dL (8.6-10.3); Carbon Dioxide 31 mEq/L (23-29); Chloride 111 mEq/L (98-107); Glucose 101 mg/dL (70-105); Magnesium 1.5 mg/dL (1.6-2.6); Osmolality,Calculated 296 (280-300); Phosphorous 1.6 mg/dL (2.7-4.5); Potassium 3.6 mEq/L (3.5-5.1); Sodium 143 mEq/L (136-145); eGFR For African Americans > 60 (> 60); eGFR For Non-African Americans > 60 (> 60)
[2019-10-03] MEDS: Pregabalin 75 MG CAPSULE PO SCH ×3 (07:38→20:30)
[2019-10-03] MEDS: amLODIPine 5 MG TABLET PO SCH (07:38)
[2019-10-03] MEDS: CREON 24,000 UNITS PO SCH ×3 (07:40→15:58)
[2019-10-03] MEDS: cefTRIAXone 2,000 MG in Water for inj. (sterile) 20 ML IVP SCH (07:42)
[2019-10-03] MEDS: Budesonide/Formoterol 160/4.5 1 PUFF INH IH SCH ×2 (08:00→20:09)
[2019-10-03] MEDS: Magnesium Oxide 400 MG TABLET PO SCH ×2 (08:27→20:30)
[2019-10-04] MEDS: Morphine Sulfate Immed Rel 15 MG TABLET PO SCH ×2 (00:13→07:53)
[2019-10-04] MEDS: *HR* HYDROcodone/Acet 5/325 mg TABLET PO SCH ×2 (00:13→06:17)
[2019-10-04] MEDS: Vancomycin 1,500 MG/265 ML IV.SOLN IVPB SCH (00:13)
[2019-10-04 03:13] LABS: Hematocrit 40.7 % (37.5-50.1); Hemoglobin 12.6 g/dL (12.9-16.9); Mean Corpuscular Hemoglobin 29.4 pg (28.0-33.3); Mean Corpuscular Volume 94.9 fL (83.0-100.0); Mean Platelet Volume 11.5 fL (9.4-12.4); Platelet Count 146 K/mcL (140-400); Red Blood Count 4.29 M/mcL (4.19-5.50); Red Cell Distribution Width 13.6 % (11.5-14.5); White Blood Count 4.7 K/mcL (4.3-11.1)
[2019-10-04 03:27] LABS: Alanine Aminotransferase 30 Units/L (7-52); Albumin 2.9 g/dL (3.5-5.7); Albumin/Globulin Ratio 1.7 (1.1-2.2); Alkaline Phosphatase 284 Units/L (34-104); Aspartate Amino Transferase 22 Units/L (13-39); BUN/Creatinine Ratio 20 (6-26); Bilirubin,Total 0.3 mg/dL (0.3-1.0); Blood Urea Nitrogen 12 mg/dL (8-23); Calcium 7.8 mg/dL (8.6-10.3); Carbon Dioxide 28 mEq/L (23-29); Chloride 111 mEq/L (98-107); Gamma Glutamyl Transpeptidase 76 Units/L (7-64); Globulin 1.7 g/dL (2.4-3.5); Glucose 128 mg/dL (70-105); Osmolality,Calculated 297 (280-300); Sodium 143 mEq/L (136-145); Total Protein 4.6 g/dL (6.4-8.9); eGFR For African Americans > 60 (> 60); eGFR For Non-African Americans > 60 (> 60)
[2019-10-04] MEDS: *HR* Heparin 5,000 UNIT/ML VIAL SQ SCH (06:18)
[2019-10-04 07:42] VITALS: BP 150/82
[2019-10-04] MEDS: amLODIPine 5 MG TABLET PO SCH (07:53)
[2019-10-04] MEDS: CREON 24,000 UNITS PO SCH (07:53)
[2019-10-04] MEDS: Pregabalin 75 MG CAPSULE PO SCH (07:53)
[2019-10-04] MEDS: Magnesium Oxide 400 MG TABLET PO SCH (07:54)
[2019-10-04 08:26] LABS: Magnesium 1.7 mg/dL (1.6-2.6); Phosphorous 1.8 mg/dL (2.7-4.5)
[2019-10-04] MEDS: Budesonide/Formoterol 160/4.5 1 PUFF INH IH SCH (11:14)
== END 2019-10-04 12:14 | disposition home or self-care (01) | DRG 690 ==
LOC: EMEROOARM 07:20 → 3BNU 07:20 → SUATTDRO 09:27 → 3BNU 10:29
PROVIDERS: ADMIT Internal Medicine; ATTEND Internal Medicine

== ENCOUNTER 2019-11-03 21:44 | Inpatient (IN) ==
[2019-11-04] MEDS ORDERED: Naloxone 0.4 MG/ML INJ IVP PRN (01:24)
[2019-11-04] MEDS ORDERED: 0.9 % Sodium Chloride 1,000 ML IVC SCH (01:30)
[2019-11-04 03:21] LABS: Eosinophils % 0.6 %; Platelet Count 125 K/mcL (140-400); Red Cell Distribution Width 12.4 % (11.5-14.5)
[2019-11-04 03:23] LABS: Basophils % 0.4 %; Eosinophils # 0.1 K/mcL (0.0-0.6); Hematocrit 40.5 % (37.5-50.1); Hemoglobin 12.8 g/dL (12.9-16.9); Immature Granulocytes % 0.5 % (0-4); Immature Platelets 6.1 % (1.1-6.1); Lymphocytes # 0.9 K/mcL (0.6-4.6); Lymphocytes % 11.8 %; Mean Corpuscular HGB Conc 31.6 g/dL (31.6-35.5); Mean Corpuscular Volume 91.8 fL (83.0-100.0); Mean Platelet Volume 11.2 fL (9.4-12.4); Monocytes # 0.9 K/mcL (0.0-1.3); Red Blood Count 4.41 M/mcL (4.19-5.50); Segmented Neutrophils % 75.7 %; White Blood Count 7.9 K/mcL (4.3-11.1)
[2019-11-04 03:33] LABS: INR 1.2; Prothrombin Time 13.3 Seconds (9.4-12.1)
[2019-11-04 03:36] LABS: Activated Partial Thrombo Time 34.6 Seconds (26.0-36.0)
[2019-11-04 03:39] LABS: Platelet Estimate Slight Decrease (Normal)
[2019-11-04 03:42] LABS: Alanine Aminotransferase 35 Units/L (7-52); Albumin 2.8 g/dL (3.5-5.7); Albumin/Globulin Ratio 1.6 (1.1-2.2); Alkaline Phosphatase 231 Units/L (34-104); Aspartate Amino Transferase 16 Units/L (13-39); BUN/Creatinine Ratio 13 (6-26); Bilirubin,Total 0.6 mg/dL (0.3-1.0); Blood Urea Nitrogen 11 mg/dL (8-23); Calcium 8.1 mg/dL (8.6-10.3); Carbon Dioxide 28 mEq/L (23-29); Chloride 110 mEq/L (98-107); Globulin 1.8 g/dL (2.4-3.5); Glucose 122 mg/dL (70-105); Osmolality,Calculated 293 (280-300); Potassium 3.7 mEq/L (3.5-5.1); Sodium 141 mEq/L (136-145); Total Protein 4.6 g/dL (6.4-8.9); eGFR For African Americans > 60 (> 60); eGFR For Non-African Americans > 60 (> 60)
[2019-11-04] MEDS ORDERED: traZODone 50 MG TABLET PO PRN (07:18)
[2019-11-04] MEDS ORDERED: *HR* HYDROcodone/Acet 5/325 mg TABLET PO PRN (07:30)
[2019-11-04] MEDS: Morphine Sulfate Immed Rel 15 MG TABLET PO SCH ×3 (08:28→22:55)
[2019-11-04] MEDS: Pregabalin 75 MG CAPSULE PO SCH ×3 (08:28→22:55)
[2019-11-04] MEDS: Cyanocobalamin (B-12) 1,000 MCG TABLET PO SCH (08:28)
[2019-11-04] MEDS: (Colestipol Hcl [Colestid] 1 GM) PO SCH ×2 (08:29→22:56)
[2019-11-04] MEDS ORDERED: Vancomycin 1,250 MG/262.5 ML IV.SOLN IVPB SCH (09:00)
[2019-11-04] MEDS ORDERED: cefTRIAXone 1,000 MG in 0.9 % Sodium Chloride Mini Bag 100 ML IVPB SCH (09:00)
[2019-11-04 10:05] LABS: Bilirubin,Urine Negative (Negative); Blood,Urine Moderate (Negative); Glucose,Urine (UA) Normal (Normal); Ketones,Urine Negative (Negative); Leukocyte Esterase,Urine Small (Negative); Nitrite,Urine Negative (Negative); Protein,Urine 100 mg/dL (Neg-Trace); Specific Gravity,Urine 1.012 (1.010-1.025); Urobilinogen,Urine Normal (Normal)
[2019-11-04 10:12] LABS: Clarity,Urine Turbid (Clear); Color,Urine Red (Yellow)
[2019-11-04] MEDS: Budesonide/Formoterol 160/4.5 1 PUFF INH IH SCH ×2 (11:22→20:03)
[2019-11-04] MEDS: Ampicillin 2 GM in 0.9 % Sodium Chloride Mini Bag 100 ML IVPB SCH ×4 (12:32→23:42)
[2019-11-04] MEDS: rOPINIRole 1 MG TABLET PO SCH (22:55)
[2019-11-04] MEDS: (Lipase/Protease/Amylase [Creon Dr 24,000 Units Capsu PO SCH (22:56)
[2019-11-04] MEDS: *HR* HYDROcodone/Acet 5/325 mg TABLET PO SCH (23:41)
[2019-11-05 01:35] LABS: Immature Granulocytes % 0.4 % (0-4)
[2019-11-05 01:37] LABS: Basophils # 0.1 K/mcL (0.0-0.2); Basophils % 0.8 %; Eosinophils # 0.2 K/mcL (0.0-0.6); Eosinophils % 2.5 %; Immature Platelets 5.1 % (1.1-6.1); Lymphocytes # 1.2 K/mcL (0.6-4.6); Lymphocytes % 16.4 %; Mean Corpuscular HGB Conc 32.5 g/dL (31.6-35.5); Mean Corpuscular Hemoglobin 30.1 pg (28.0-33.3); Mean Corpuscular Volume 92.6 fL (83.0-100.0); Mean Platelet Volume 11.6 fL (9.4-12.4); Monocytes # 0.9 K/mcL (0.0-1.3); Monocytes % 12.6 %; Neutrophils # 4.8 K/mcL (1.6-8.9); Platelet Count 141 K/mcL (140-400); Red Blood Count 4.32 M/mcL (4.19-5.50); Red Cell Distribution Width 12.2 % (11.5-14.5); Segmented Neutrophils % 67.3 %; White Blood Count 7.1 K/mcL (4.3-11.1)
[2019-11-05 01:51] LABS: BUN/Creatinine Ratio 12 (6-26); Blood Urea Nitrogen 9 mg/dL (8-23); Calcium 7.9 mg/dL (8.6-10.3); Carbon Dioxide 28 mEq/L (23-29); Chloride 110 mEq/L (98-107); Glucose 120 mg/dL (70-105); Osmolality,Calculated 294 (280-300); Potassium 3.7 mEq/L (3.5-5.1); Sodium 142 mEq/L (136-145); eGFR For African Americans > 60 (> 60); eGFR For Non-African Americans > 60 (> 60)
[2019-11-05] MEDS: Ampicillin 2 GM in 0.9 % Sodium Chloride Mini Bag 100 ML IVPB SCH ×5 (04:12→20:35)
[2019-11-05] MEDS: *HR* Enoxaparin 40 MG/0.4 ML SYRINGE SQ SCH (05:31)
[2019-11-05] MEDS: *HR* HYDROcodone/Acet 5/325 mg TABLET PO SCH ×3 (05:51→18:14)
[2019-11-05] MEDS: (Lipase/Protease/Amylase [Creon Dr 24,000 Units Capsu PO SCH ×4 (08:00→20:37)
[2019-11-05] MEDS: Budesonide/Formoterol 160/4.5 1 PUFF INH IH SCH ×2 (08:24→19:47)
[2019-11-05] MEDS: Morphine Sulfate Immed Rel 15 MG TABLET PO SCH ×2 (09:44→16:39)
[2019-11-05] MEDS: Cyanocobalamin (B-12) 1,000 MCG TABLET PO SCH (09:45)
[2019-11-05] MEDS: amLODIPine 5 MG TABLET PO SCH (09:45)
[2019-11-05] MEDS: Pregabalin 75 MG CAPSULE PO SCH ×3 (09:45→20:36)
[2019-11-05] MEDS: rOPINIRole 1 MG TABLET PO SCH (20:36)
[2019-11-06] MEDS: *HR* HYDROcodone/Acet 5/325 mg TABLET PO SCH ×2 (00:09→06:08)
[2019-11-06] MEDS: Ampicillin 2 GM in 0.9 % Sodium Chloride Mini Bag 100 ML IVPB SCH ×3 (00:09→07:39)
[2019-11-06] MEDS: Morphine Sulfate Immed Rel 15 MG TABLET PO SCH ×2 (01:09→07:40)
[2019-11-06] MEDS: *HR* Enoxaparin 40 MG/0.4 ML SYRINGE SQ SCH (06:07)
[2019-11-06 07:18] VITALS: BP 148/70
[2019-11-06] MEDS: Cyanocobalamin (B-12) 1,000 MCG TABLET PO SCH (07:40)
[2019-11-06] MEDS: Pregabalin 75 MG CAPSULE PO SCH (07:40)
[2019-11-06] MEDS: amLODIPine 5 MG TABLET PO SCH (07:40)
[2019-11-06] MEDS: (Lipase/Protease/Amylase [Creon Dr 24,000 Units Capsu PO SCH (07:41)
[2019-11-06] MEDS: Budesonide/Formoterol 160/4.5 1 PUFF INH IH SCH (10:18)
== END 2019-11-06 11:19 | disposition home or self-care (01) | DRG 690 ==
LOC: 3ANU → SUATTDRO 11-04 00:47
PROVIDERS: ADMIT Internal Medicine; ATTEND Internal Medicine